=== PATIENT | male | born 1955 | race Caucasian/White ===

== ENCOUNTER 2016-03-29 06:05 | Outpatient (CLI) ==
[2015-11-07 19:59] VITALS: BMI 33.0
[2016-03-29 06:41] LABS: PROTHROMBIN TIME 28.4 SEC (9.3-11.0)
== END 2016-03-29 06:06 | disposition home or self-care (01) ==
LOC: LAB 06:05
PROVIDERS: ATTEND Internal Medicine
DX: I48.91 Unspecified atrial fibrillation (principal); Z51.81 Encounter for therapeutic drug level monitoring
CPT/HCPCS: 36415; 85610

== ENCOUNTER 2016-04-12 06:04 | Outpatient (CLI) ==
[2015-11-07 19:59] VITALS: BMI 33.0
[2016-04-12 06:32] LABS: PROTHROMBIN TIME 28.2 SEC (9.3-11.0)
== END 2016-04-12 06:05 | disposition home or self-care (01) ==
LOC: LAB 06:04
PROVIDERS: ATTEND Internal Medicine
DX: Z51.81 Encounter for therapeutic drug level monitoring (principal); I48.91 Unspecified atrial fibrillation
CPT/HCPCS: 36415; 85610

== ENCOUNTER 2016-04-26 06:11 | Outpatient (CLI) ==
[2015-11-07 19:59] VITALS: BMI 33.0
[2016-04-26 06:33] LABS: HEMATOCRIT 37.8 % (42.0-52.0); HEMOGLOBIN 12.3 g/dl (14.0-18.0); MEAN CORPUSCULAR HEMOGLOBIN 26.3 pg (27.0-31.0); MEAN CORPUSCULAR HGB CONC 32.5 (31.8-35.4); MEAN CORPUSCULAR VOLUME 80.9 fl (80.0-94.0); RED BLOOD COUNT 4.67 10^6/ul (4.70-6.10); WHITE BLOOD COUNT 11.09 K/ul (4.2-10.2)
[2016-04-26 06:45] LABS: PROTHROMBIN TIME 34.8 SEC (9.3-11.0)
[2016-04-26 06:49] LABS: ALBUMIN 3.1 g/dL (3.4-5.0); ALBUMIN/GLOBULIN RATIO 0.66; BILIRUBIN,TOTAL 0.48 mg/dL (0.00-1.20); BUN/CREATININE RATIO 9.58; CALCIUM 9.3 mg/dL (8.2-10.2); CREATININE 1.46 mg/dL (0.60-1.10); TOTAL PROTEIN 7.8 g/dL (5.8-8.1)
[2016-04-26 06:50] LABS: CHOL/HDL RATIO 4.3 (4.5-6.4)
== END 2016-04-26 06:12 | disposition home or self-care (01) ==
LOC: LAB 06:11
PROVIDERS: ATTEND Internal Medicine
DX: Z51.81 Encounter for therapeutic drug level monitoring (principal); D72.829 Elevated white blood cell count, unspecified; I48.91 Unspecified atrial fibrillation; E11.9 Type 2 diabetes mellitus without complications; I10 Essential (primary) hypertension
CPT/HCPCS: 36415; 80053; 80061; 83036; 85027; 85610

== ENCOUNTER 2016-05-03 06:04 | Outpatient (CLI) ==
[2015-11-07 19:59] VITALS: BMI 33.0
[2016-05-03 06:44] LABS: PROTHROMBIN TIME 29.3 SEC (9.3-11.0)
== END 2016-05-03 06:05 | disposition home or self-care (01) ==
LOC: LAB 06:04
PROVIDERS: ATTEND Internal Medicine
DX: Z51.81 Encounter for therapeutic drug level monitoring (principal); I48.91 Unspecified atrial fibrillation
CPT/HCPCS: 36415; 85610

== ENCOUNTER 2016-05-04 02:14 | Emergency (ER) ==
[2016-05-04 02:28] LABS: BASOPHILS # (AUTO) 0.1 K/uL (0-0.2); BASOPHILS % (AUTO) 0.8 % (0.0-3.0); EOSINOPHILS # (AUTO) 1.6 K/ul (0.0-0.7); EOSINOPHILS % (AUTO) 10.3 % (0.0-7.0); HEMOGLOBIN 12.5 g/dl (14.0-18.0); IMMATURE GRANULOCYTE % (AUTO) 0.5 % (0.0-5.0); LYMPHOCYTES # (AUTO) 2.9 K/uL (0.60-3.4); LYMPHOCYTES % (AUTO) 18.2 (10.0-50.0); MEAN CORPUSCULAR HEMOGLOBIN 26.2 pg (27.0-31.0); MEAN CORPUSCULAR HGB CONC 32.9 (31.8-35.4); MEAN CORPUSCULAR VOLUME 79.7 fl (80.0-94.0); MONOCYTES # (AUTO) 1.1 K/uL (0.4-2.0); NEUTROPHILS % (AUTO) 63.2; PLATELET COUNT 266 10^3/uL (140-440); RED BLOOD COUNT 4.77 10^6/ul (4.70-6.10); WHITE BLOOD COUNT 15.86 K/ul (4.2-10.2)
[2016-05-04 02:30] LABS: ABG BASE EXCESS -1 (-2.0-2.0); ABG HCO3 23 (22.0-26.0); ABG PCO2 35.1 mmHg (35-45); ABG PH 7.424 (7.35-7.45)
[2016-05-04] MEDS ORDERED: CARDIZEM INJ 125 MG in SODIUM CHLORIDE 100 ML IV SCH (02:30)
--- NOTE | 2016-05-04 02:30 | ED.PDOC ---
General ED Provider: Dr. RYAN LEMON-ER Chief Complaint: Chest Pain Stated Complaint: my heart flutters--i go to [facility] Time Seen by Physician: 02:27 Mode of Arrival: Walk-In Information Source: Patient, Family Exam Limitations: Physical impairment Primary Care Provider: ALEXEY PULIDO Nursing and Triage Documentation Reviewed and Agree: Yes Cardiovascular Complaint Exam - Chest Pain Complaint/Exam Onset: Gradual Duration: 6hrs Symptoms Are: Still present Timing: Intermittent Initial Severity: Mild Current Severity: Mild Location: Reports: Midsternal Character: Reports: Dull Aggravating: Reports: None Alleviating: Reports: None Associated Signs and Symptoms: Denies: Diaphoresis, Nausea, Vomiting, Fever, Palpitations, Cough, Hemoptysis, Back pain, Abdominal pain, Dizziness, Short of air, Calf pain, Calf swelling Related History: Reports: Similar episode History of Healthcare-Acquired Pneumonia: Reports: No AMI/ACS Risk Factors: Reports: Hypertension TAD Risk Factors: Reports: Hypertension Pulmonary Embolism Risk Factors: Reports: None Prior Care for this Complaint: No Recent Stress Test: No Recent Echo/LV Function: No JVD Present: No Subcutaneous Emphysema Present: No Diminshed Breath Sounds: No Reproducible Chest Wall Pain: No Bilateral Pulses Present: Yes Unequal Pulses Noted: No Differential Diagnoses: Acute [place], ACS, Other Review of Systems - Review Of Systems Constitutional: Reports: No symptoms Eyes: Reports: No symptoms Ears, Nose, Mouth, Throat: Reports: No symptoms Respiratory: Reports: Short of air Cardiac: Reports: Chest pain, Irregular heart rate, Palpitations GI: Reports: No symptoms : Reports: No symptoms Musculoskeletal: Reports: No symptoms Skin: Reports: No symptoms Neurological: Reports: No symptoms Endocrine: Reports: No symptoms Hematologic/Lymphatic: Reports: No symptoms All Other Systems: Reviewed and Negative Past Medical History - Past Medical History Endocrine: Reports: DM 2 Cardiovascular: Reports: Hypertension, A-Fib Respiratory: Reports: None Hematological: Reports: None Gastrointestinal: Reports: None Genitourinary: Reports: None Neuro/Psych: Reports: CVA (x 7 with right hemiparesis ) Musculoskeletal: Reports: None Cancer: Reports: None - Surgical History General Surgical History: Reports: Cholecystectomy, Other (HERNIA) - Family History Family History: Reports: Diabetes - Social History Smoking Status: Current every day smoker, Heavy tobacco smoker Hx Substance Use: Yes (POT) Alcohol Screening: None Lives: With family Physical Exam - Physical Exam Appearance: Well-appearing, No pain distress, Well-nourished Pain Distress: Mild Eyes: HERMINIA, EOMI, Conjunctiva clear ENT: Ears normal, Nose normal, Oropharynx normal Neck: Supple Respiratory: Airway patent, Breath sounds clear, Breath sounds equal, Respirations nonlabored Cardiovascular: Irregular rhythm GI/: Soft, Nontender, No masses, Bowel sounds normal, No Organomegaly Musculoskeletal: Normal strength, ROM intact, No edema, No calf tenderness Skin: Warm, Dry, Normal color Neurological: Sensation intact, Motor intact, Reflexes intact, Cranial nerves intact, Alert, Oriented Psychiatric: Affect appropriate Critical Care Note - Critical Care Note Total Time (mins): 20 Course - Course Orders, Labs, Meds: Orders Category Date Time Status ABG DRAW REQUEST Stat CARDIO 05/04/16 02:20 Ordered EKG-(ED ONLY) Stat CARDIO 05/04/16 02:20 Ordered OXYGEN [ED APPLY O2] .ONCE EMERGENCY 05/04/16 02:23 Active ABG Stat LAB 05/04/16 02:20 Ordered B-TYPE NATRIURETIC PEPTIDE Stat LAB 05/04/16 02:22 Ordered CBC W/ AUTO DIFF Stat LAB 05/04/16 02:20 Ordered COMPREHENSIVE METABOLIC PANEL Stat LAB 05/04/16 02:20 Ordered CREATINE KINASE Stat LAB 05/04/16 02:21 Ordered FREE T4 (FREE THYROXINE) Stat LAB 05/04/16 02:21 Ordered PT WITH INR Stat LAB 05/04/16 02:22 Ordered TROPONIN I Stat LAB 05/04/16 02:21 Ordered TSH [THYROID STIMULATING HORMONE] Stat LAB 05/04/16 02:21 Ordered 0.9 % Sodium Chloride [Sodium Chloride] 100 ml MEDS 05/04/16 02:30 Ordered Diltiazem HCl Inj [Cardizem Inj] 125 mg IV 10 mg/hr CXR [CHEST, 1V AP ONLY] Stat RADS 05/04/16 02:22 Ordered Medications Generic Name Dose Route Start Last Admin Trade Name Freq PRN Reason Stop Dose Admin Diltiazem HCl 125 mg/ Sodium 125 mls @ 10 mls/hr 05/04/16 02:30 Chloride IV .[id number] LAST Protocol 10 MG/HR GLORY Risk Score GLORY Risk Score: Risk Score Odds of by 30D 0 0.1 (0.1-0.2) 1 0.3 (0.2-0.3) 2 0.4 (0.3-0.5) 3 0.7 (0.6-0.9) 4 1.2 (1.0-1.5) 5 2.2 (1.9-2.6) 6 3.0 (2.5-3.6) 7 4.8 (3.8-6.1) Departure - Departure Time of Disposition: : Disposition: TSF SHORT-TRM HOSP Discharge Problem: Chest pain, Atrial fibrillation with rapid ventricular response Instructions: Atrial Fibrillation (ED) Condition: Good Pt referred to PMD for follow-up: No Allergies/Adverse Reactions: Allergies [id number]-Pls Reductase Inhibitor Allergy (Severe, Verified 05/04/16 02:16) made me sick dye Allergy (Severe, Uncoded 05/04/16 02:16) rash Pt to buy medical alert necklace Home Medications: Ambulatory Orders Amlodipine Besylate [Norvasc] 10 mg PO DAILY 04/10/13 Aspirin/Calcium Carbonate/Mag [Aspirin Buffered 325 Mg Tab] 325 mg PO DAILY Cholecalciferol (Vitamin D3) [Vitamin D] 1,000 unit PO BID 05/20/15 Furosemide [Lasix] 20 mg PO d 05/20/15 Gabapentin 300 mg PO BID 05/20/15 Hydrocodone/Acetaminophen [[place] 7.5-325 Tablet] 1 each PO QID 05/20/15 Insulin Glargine,Hum.rec.anlog [Lantus] 50 unit SQ BEDTIME vial 05/20/15 Lisinopril 20 mg PO BID 05/20/15 Pravastatin Sodium 40 mg PO DAILY 05/20/15 Sitagliptin Phosphate [Januvia] 100 mg PO d 05/20/15 Warfarin Sodium [Coumadin] 4 mg PO d 05/20/15 Polyethylene Glycol 1450 [Pcca Polyglycol [place]] 1 gm QA #60 powder Transfer Form Completed: Yes Disposition Discussed With: Patient, Family
[2016-05-04 02:31] LABS: ABG TCO2 24 (22.0-28.0)
[2016-05-04 02:40] VITALS: BP 102/94
[2016-05-04 02:41] VITALS: TEMP 99.9; BMI 33.7
[2016-05-04] MEDS ORDERED: CARDIZEM INJ IVP STA (02:49)
[2016-05-04 02:54] LABS: PROTHROMBIN TIME 27.6 SEC (9.3-11.0)
[2016-05-04 03:12] LABS: ALANINE AMINOTRANSFERASE 15 U/L (12-78); ALBUMIN 3.3 g/dL (3.4-5.0); ALBUMIN/GLOBULIN RATIO 0.69; ALKALINE PHOSPHATASE 78 U/L (56-119); ANION GAP 15.5; ASPARTATE AMINO TRANSFERASE 22 U/L (15-37); BILIRUBIN,TOTAL 0.67 mg/dL (0.00-1.20); BLOOD UREA NITROGEN 12 mg/dL (7-18); BUN/CREATININE RATIO 8.51; CALCIUM 9.6 mg/dL (8.2-10.2); CARBON DIOXIDE 24 mmol/L (23-31); CHLORIDE 103 mmol/L (98-107); CREATINE KINASE 127 U/L; CREATININE 1.41 mg/dL (0.60-1.10); GLUCOSE 117 mg/dL (82-115); POTASSIUM 3.5 mmol/L (3.5-5.1); SODIUM 139 mmol/L (136-145); TOTAL PROTEIN 8.1 g/dL (5.8-8.1)
[2016-05-04 03:13] LABS: CREATINE KINASE MB 4.3 ng/ml (0.0-3.6)
[2016-05-04] MEDS ORDERED: CARDIZEM INJ ONE (03:13)
--- NOTE | 2016-05-04 07:21 | DI ---
EXAM: Chest one view HISTORY: Chest pain COMPARISON: 07/05/2012 TECHNIQUE: Single view of the chest was performed FINDINGS: There is bilateral interstitial and alveolar opacity. There is granulomatous calcificati on. There is no pleural effusion or pneumothorax. The heart is borderline enlarged and unchanged i n size. The mediastinal contour is normal. There are no acute abnormalities of the bones. IMPRESSION: Bilateral interstitial and alveolar opacity may represent edema and/or pneumonia. Report faxed at time of dictation.
== END 2016-05-04 03:15 | disposition short-term general hospital (02) ==
LOC: ED 02:14
DX: I48.0 Paroxysmal atrial fibrillation (principal); R07.9 Chest pain, unspecified; I10 Essential (primary) hypertension; E11.9 Type 2 diabetes mellitus without complications; Z86.73 Personal history of transient ischemic attack (TIA), and cerebral infarction without residual deficits; F17.210 Nicotine dependence, cigarettes, uncomplicated; Z79.01 Long term (current) use of anticoagulants; Z79.899 Other long term (current) drug therapy
CPT/HCPCS: 36415; 80053; 82550; 82553; 82803; 83880; 84439; 84443; 84484; 85025; 85610; 93005; 93010; 96365; 96376; 99285

== ENCOUNTER 2016-05-04 03:18 | Outpatient (CLI) ==
[2016-05-04 02:41] VITALS: BMI 33.7
== END 2016-05-04 03:19 | disposition home or self-care (01) ==
LOC: AMBL 03:18
PROVIDERS: ATTEND Family Medicine
DX: R06.02 Shortness of breath (principal); R00.0 Tachycardia, unspecified; R06.2 Wheezing; I10 Essential (primary) hypertension; E11.9 Type 2 diabetes mellitus without complications; I48.91 Unspecified atrial fibrillation; Z86.73 Personal history of transient ischemic attack (TIA), and cerebral infarction without residual deficits

== ENCOUNTER 2016-05-10 19:29 | Outpatient (CLI) ==
[2016-05-10 19:49] VITALS: BMI 43.0
== END 2016-05-10 19:30 ==
LOC: AMBL 19:29
PROVIDERS: ATTEND Family Medicine
DX: R09.2 Respiratory arrest (principal)

== ENCOUNTER 2016-05-10 19:37 | Emergency (ER) ==
[2016-05-10] MEDS ORDERED: VERSED ONE (19:46)
[2016-05-10] MEDS ORDERED: AMIDATE IVP ONE (19:46)
[2016-05-10] MEDS ORDERED: NORCURON ONE (19:46)
[2016-05-10] MEDS ORDERED: ANECTINE ONE (19:46)
[2016-05-10 19:49] VITALS: BP 197/77; TEMP 97; BMI 43.0
[2016-05-10 19:51] LABS: BASOPHILS # (AUTO) 0.1 K/uL (0-0.2); BASOPHILS % (AUTO) 0.8 % (0.0-3.0); HEMATOCRIT 33.7 % (42.0-52.0); HEMOGLOBIN 10.7 g/dl (14.0-18.0); IMMATURE GRANULOCYTE % (AUTO) 0.9 % (0.0-5.0); LYMPHOCYTES # (AUTO) 3.2 K/uL (0.60-3.4); LYMPHOCYTES % (AUTO) 22.6 (10.0-50.0); MEAN CORPUSCULAR HEMOGLOBIN 26.2 pg (27.0-31.0); MEAN CORPUSCULAR HGB CONC 31.8 (31.8-35.4); MEAN CORPUSCULAR VOLUME 82.4 fl (80.0-94.0); MONOCYTES # (AUTO) 1.3 K/uL (0.4-2.0); MONOCYTES % (AUTO) 9.1 (0-10); NEUTROPHILS # (AUTO) 8.3 K/ul (2.0-6.9); NEUTROPHILS % (AUTO) 59.6; PLATELET COUNT 314 10^3/uL (140-440); RED BLOOD COUNT 4.09 10^6/ul (4.70-6.10)
[2016-05-10] MEDS ORDERED: LASIX IVP STA (19:51)
[2016-05-10 19:59] LABS: ABG PH 7.191 (7.35-7.45)
--- NOTE | 2016-05-10 19:59 | ED.PDOC ---
General ED Provider: Dr. RYAN LEMON-ER Chief Complaint: Shortness of Air Stated Complaint: left harjinder roberts today=---presented to [facility] in pulmonary edema , cyanotic--resp distress Time Seen by Physician: 19:40 Mode of Arrival: Ambulance Information Source: Patient, Family, EMT Exam Limitations: No limitations Primary Care Provider: ALEXEY PULIDO Nursing and Triage Documentation Reviewed and Agree: Yes Respiratory Complaint Exam - Shortness of Air Complaint/Exam Onset/Duration: unknown Symptoms Are: Still present Timing: Constant Initial Severity: Moderate Current Severity: Severe Character: Reports: Dyspnea at rest Aggravating: Reports: None Alleviating: Reports: None Associated Signs and Symptoms: Reports: Wheezing, Edema, Rapid breathing, Labored breathing. Denies: Cough, Chest pain with cough, Chest pain, Fever, Chills, Diaphoresis, Nasal congestion, Dizziness, Calf pain, Calf swelling, Decreased intake Related History: Reports: Similar episode History of Healthcare-Acquired Pneumonia: No Cardiac Risk Factors: Reports: Prior [place], CAD, Elevated lipids, Diabetes, Hypertension, CHF Pseudomonas Risk Factors: Reports: Chronic Lung Disease Tuberculosis Risk Factors: Reports: Chronic Resp. Faliure Home Oxygen Use: No Recent Stress Test: No Recent Echo/LV Function: Yes Respiratory Distress: Moderate Stridor Present: No Tracheal Deviation: No Subcutaneous Emphysema: No Accessory Muscle Use: Yes Retractions: Intercostal Diminished Breath Sounds: Yes Prolonged Expiratory Phase: No Unable to Speak Full Sentences: Yes Fatigue: Yes Leg Swelling: No Jamal's Sign Present: No Grunting Respirations: No Kussmaul Respirations: No Differential Diagnoses: CHF, Pulmonary Edema, COPD Exacerbation, [place] Quality Indicator For Non-Traumatic Chest Pain/Syncope: EKG Performed Review of Systems - Review Of Systems Constitutional: Reports: No symptoms Eyes: Reports: No symptoms Ears, Nose, Mouth, Throat: Reports: No symptoms Respiratory: Reports: Cough, Short of air Cardiac: Reports: Chest pain, Edema GI: Reports: No symptoms : Reports: No symptoms Musculoskeletal: Reports: No symptoms Skin: Reports: No symptoms Neurological: Reports: No symptoms Endocrine: Reports: No symptoms Hematologic/Lymphatic: Reports: No symptoms All Other Systems: Reviewed and Negative Past Medical History - Past Medical History Endocrine: Reports: DM 2 Cardiovascular: Reports: Hypertension, A-Fib Respiratory: Reports: None Hematological: Reports: None Gastrointestinal: Reports: None Genitourinary: Reports: None, CKD Neuro/Psych: Reports: CVA (x 7 with right hemiparesis ) Musculoskeletal: Reports: None Cancer: Reports: None - Surgical History General Surgical History: Reports: Cholecystectomy, Other (HERNIA) - Family History Family History: Reports: Diabetes - Social History Smoking Status: Current every day smoker, Heavy tobacco smoker Hx Substance Use: Yes (POT) Alcohol Screening: None Physical Exam - Physical Exam Appearance: Well-appearing, No pain distress, Well-nourished Eyes: HERMINIA, EOMI, Conjunctiva clear ENT: Ears normal, Nose normal, Oropharynx normal Neck: Supple Respiratory: Airway patent, Breath sounds equal, Breath sounds diminished, Crackles, Wheezes Cardiovascular: Tachycardia GI/: Soft, Nontender, No masses, Bowel sounds normal, No Organomegaly Musculoskeletal: Normal strength, ROM intact, No edema, No calf tenderness Skin: Warm, Dry, Normal color Neurological: Sensation intact, Motor intact, Reflexes intact, Cranial nerves intact, Alert, Oriented Psychiatric: Affect appropriate, Mood appropriate, Anxious Interpretation - Radiology Interpretation Radiology Interpretation By: ED Physician Radiology Results: Positive Exam Interpreted: Portable CXR - EKG Interpretation Time of EKG #1: 20:00 Rate: Normal Rhythm: Sinus Ectopy: None [place]: NL ST Segment: Normal Critical Care Note - Critical Care Note Total Time (mins): 30 Course - Course Hematology/Chemistry: 05/10/16 19:40 Orders, Labs, Meds: Lab Review 05/10/16 19:40 WBC 14.00 H RBC 4.09 L Hgb 10.7 L Hct 33.7 L MCV 82.4 MCH 26.2 L MCHC 31.8 RDW Coeff of Mariano 13.7 Plt Count 314 Immature Gran % (Auto) 0.9 Neut % (Auto) 59.6 Lymph % (Auto) 22.6 [place] % (Auto) 9.1 Eos % (Auto) 7.0 Baso % (Auto) 0.8 Immature Gran # (Auto) 0.1 Neut # 8.3 H Lymph # 3.2 [place] # 1.3 Eos # 1.0 H Baso # 0.1 Orders Category Date Time Status ABG DRAW REQUEST Stat CARDIO 05/10/16 19:41 Ordered EKG-(ED ONLY) Stat CARDIO 05/10/16 19:41 Ordered ED SUPERVISOR STAGE CARPENTRY APPLIED .ONCE EMERGENCY 05/10/16 19:42 Active IV [ED IV/MEDIPORT/POWERPORT] .ONCE EMERGENCY 05/10/16 19:42 Active ABG Stat LAB 05/10/16 19:41 Ordered BNP [B-TYPE NATRIURETIC PEPTIDE] Stat LAB 05/10/16 19:40 Received CBC W/ AUTO DIFF Stat LAB 05/10/16 19:40 Completed COMPREHENSIVE METABOLIC PANEL Stat LAB 05/10/16 19:40 Received CREATINE KINASE Stat LAB 05/10/16 19:40 Received D-DIMER Stat LAB 05/10/16 19:40 Received PT WITH INR Stat LAB 05/10/16 19:40 Received TROPONIN I Stat LAB 05/10/16 19:40 Received 0.9 % Sodium Chloride [Saline Flush] MEDS 05/10/16 19:42 Ordered 1 syr IVF PRN PRN Etomidate [Amidate] MEDS 05/10/16 19:46 Discontinued 20 mg IVP .STK-MED ONE Furosemide [Lasix] MEDS 05/10/16 19:51 Discontinued 40 mg IVP ONCE STA Midazolam HCl Inj [Versed] MEDS 05/10/16 19:46 Discontinued 5 mg .ROUTE .STK-MED ONE Succinylcholine Chloride [Anectine] MEDS 05/10/16 19:46 Discontinued 20 mg .ROUTE .STK-MED ONE Vecuronium [place] [Norcuron] MEDS 05/10/16 19:46 Discontinued 10 mg .ROUTE .STK-MED ONE CXR [CHEST, 1V AP ONLY] Stat RADS 05/10/16 19:43 Ordered Medications Generic Name Dose Route Start Last Admin Trade Name Freq PRN Reason Stop Dose Admin Sodium Chloride 1 syr 05/10/16 19:42 Saline Flush IVF PRN PRN To flush IV Discontinued Medications Generic Name Dose Route Start Last Admin Trade Name Freq PRN Reason Stop Dose Admin Furosemide 40 mg 05/10/16 19:51 Lasix IVP 05/10/16 19:52 ONCE STA Vital Signs: Temp Pulse Resp BP Pulse Ox 05/10/16 19:37 97.0 F L 89 40 H 197/77 H 74 L Departure - Departure Time of Disposition: 20:00 Disposition: TSF SHORT-TRM HOSP Discharge Problem: Pulmonary edema Qualifiers: Chronicity: acute Qualifier Code: (J81.0) Acute pulmonary edema Acute respiratory failure Qualifiers: Respiratory failure complication: hypoxia Qualifier Code: (J96.01) Acute respiratory failure with hypoxia Instructions: Heart Failure (ED) Condition: Poor Pt referred to PMD for follow-up: No Allergies/Adverse Reactions: Allergies [place]-Xqp-Frk Reductase Inhibitor Allergy (Severe, Verified 05/04/16 02:16) made me sick dye Allergy (Severe, Uncoded 05/04/16 02:16) rash Pt to buy medical alert necklace Home Medications: Ambulatory Orders Amlodipine Besylate [Norvasc] 10 mg PO DAILY 04/10/13 Aspirin/Calcium Carbonate/Mag [Aspirin Buffered 325 Mg Tab] 325 mg PO DAILY Cholecalciferol (Vitamin D3) [Vitamin D] 1,000 unit PO BID 05/20/15 Furosemide [Lasix] 20 mg PO d 05/20/15 Gabapentin 300 mg PO BID 05/20/15 Hydrocodone/Acetaminophen [[place] 7.5-325 Tablet] 1 each PO QID 05/20/15 Insulin Glargine,Hum.rec.anlog [Lantus] 50 unit SQ BEDTIME vial 05/20/15 Lisinopril 20 mg PO BID 05/20/15 Pravastatin Sodium 40 mg PO DAILY 05/20/15 Sitagliptin Phosphate [Januvia] 100 mg PO d 05/20/15 Warfarin Sodium [Coumadin] 4 mg PO d 05/20/15 Polyethylene Glycol 1450 [Pcca Polyglycol [place]] 1 gm QAM #60 powder Transfer Form Completed: Yes Disposition Discussed With: Patient, Family
[2016-05-10 20:00] LABS: ABG BASE EXCESS 0 (-2.0-2.0); ABG HCO3 28.2 (22.0-26.0); ABG PCO2 73.7 mmHg (35-45); ABG TCO2 30 (22.0-28.0)
[2016-05-10] MEDS ORDERED: LASIX ONE (20:00)
[2016-05-10] MEDS ORDERED: SUBLIMAZE ONE (20:01)
[2016-05-10] MEDS ORDERED: VERSED IVP STA (20:14)
[2016-05-10] MEDS ORDERED: DIPRIVAN 20 ML VIAL IVP STA ×2 (20:14→20:29)
[2016-05-10] MEDS ORDERED: ANECTINE IVP STA (20:14)
[2016-05-10 20:16] LABS: ALBUMIN 3.2 g/dL (3.4-5.0); ALBUMIN/GLOBULIN RATIO 0.65; ANION GAP 13.3; BILIRUBIN,TOTAL 0.49 mg/dL (0.00-1.20); BUN/CREATININE RATIO 18.96; CALCIUM 8.7 mg/dL (8.2-10.2); CREATININE 1.74 mg/dL (0.60-1.10); POTASSIUM 4.3 mmol/L (3.5-5.1); TOTAL PROTEIN 8.1 g/dL (5.8-8.1); TROPONIN I 0.011 ng/ml (0.0000-0.4000)
[2016-05-10 20:26] LABS: PROTHROMBIN TIME 36.9 SEC (9.3-11.0)
[2016-05-10] MEDS ORDERED: NORCURON IVP STA (20:28)
[2016-05-10] MEDS ORDERED: SUBLIMAZE IVP STA (20:28)
[2016-05-10] MEDS ORDERED: ZOSYN 3.375 GM 3.375 GM in SODIUM CHLORIDE 100 ML IV STA (20:31)
--- NOTE | 2016-05-10 20:37 | ED.PDOC ---
Procedures - Intubation Time of Intubation: 20:10 Medications: Yes: Norcuron, Succinylcholine, Versed, Propofol Type of Tube Used: Endotracheal Tube Size: 7.5 Cricoid Pressure Used: No Tube Queen Used: Yes Position of Tube at Lip: 22 Number of Attempts: 1 Suction Used: Yes Glidescope Used: No CO2 Detector Used: Yes Lung Sounds Equal Bilaterally: Yes Intubation Complications: Present: No complications Tube Inserted By: Lucas Will CRNA Tube Placement Verified by X-ray: No Conscious Sedation - Pre-op Assessment Weight: 300 lb Surgical History: HERNIA, CHOLECYSTECTOMY. STINTS IN HEART AND LEGS - Medical History Past Medical History: Hypertension, Diabetes, CVA, Other Other History: PANCREATITIS NEUROPATHY - Physical Exam Heart Rate/Rhythm: Regular Rhythm, Regular Rate, Irregular Rhythm
--- NOTE | 2016-05-11 03:53 | DI ---
EXAM: AP single view of the chest. HISTORY: Dyspnea. FINDINGS: The bony structures are unremarkable. The cardiac silhouette is within normal limits in size. The costophrenic angles are clear. There are bilateral infiltrates. There is minimal right basilar consolidation. There are calcified granulomas. Impression: Bilateral infiltrates consistent with infection versus edema. Minimal right basilar atelectasis and/or pneumonia.
== END 2016-05-10 20:47 | disposition short-term general hospital (02) ==
LOC: ED 19:37
DX: J81.0 Acute pulmonary edema (principal); J96.01 Acute respiratory failure with hypoxia; I10 Essential (primary) hypertension; I50.9 Heart failure, unspecified; I25.2 Old myocardial infarction; E11.9 Type 2 diabetes mellitus without complications; E78.5 Hyperlipidemia, unspecified; I48.91 Unspecified atrial fibrillation; N18.9 Chronic kidney disease, unspecified; F17.210 Nicotine dependence, cigarettes, uncomplicated; Z79.01 Long term (current) use of anticoagulants; Z79.899 Other long term (current) drug therapy; Z86.73 Personal history of transient ischemic attack (TIA), and cerebral infarction without residual deficits
CPT/HCPCS: 31500; 36415; 80053; 82550; 82803; 83880; 84484; 85025; 85379; 85610; 93005; 93010; 96374; 96375; 99291

== ENCOUNTER 2016-07-01 06:35 | Outpatient (CLI) ==
[2016-07-01 07:01] VITALS: BMI 35.9
== END 2016-07-01 06:36 ==
LOC: AMBL 06:35
PROVIDERS: ATTEND Family Medicine
DX: F41.9 Anxiety disorder, unspecified (principal); G47.00 Insomnia, unspecified; I69.351 Hemiplegia and hemiparesis following cerebral infarction affecting right dominant side; Z96.0 Presence of urogenital implants

== ENCOUNTER 2016-07-01 06:51 | Emergency (ER) ==
[2016-07-01 07:01] VITALS: BP 120/58; TEMP 98.6; BMI 35.9
[2016-07-01] MEDS ORDERED: SODIUM CHLORIDE 1,000 ML IV STA (07:22)
[2016-07-01] MEDS ORDERED: ATIVAN PO STA (07:52)
[2016-07-01 07:57] LABS: BASOPHILS # (AUTO) 0.1 K/uL (0-0.2); BASOPHILS % (AUTO) 0.7 % (0.0-3.0); EOSINOPHILS # (AUTO) 0.7 K/ul (0.0-0.7); EOSINOPHILS % (AUTO) 5.3 % (0.0-7.0); HEMATOCRIT 27.6 % (42.0-52.0); HEMOGLOBIN 8.8 g/dl (14.0-18.0); IMMATURE GRANULOCYTE % (AUTO) 0.4 % (0.0-5.0); LYMPHOCYTES # (AUTO) 3.4 K/uL (0.60-3.4); LYMPHOCYTES % (AUTO) 27.7 (10.0-50.0); MEAN CORPUSCULAR HEMOGLOBIN 26.3 pg (27.0-31.0); MEAN CORPUSCULAR HGB CONC 31.9 (31.8-35.4); MEAN CORPUSCULAR VOLUME 82.4 fl (80.0-94.0); MONOCYTES # (AUTO) 1.3 K/uL (0.4-2.0); MONOCYTES % (AUTO) 10.4 (0-10); NEUTROPHILS # (AUTO) 6.8 K/ul (2.0-6.9); NEUTROPHILS % (AUTO) 55.5; PLATELET COUNT 302 10^3/uL (140-440); RED BLOOD COUNT 3.35 10^6/ul (4.70-6.10); WHITE BLOOD COUNT 12.19 K/ul (4.2-10.2)
[2016-07-01 08:00] LABS: ABG BASE EXCESS 0 (-2.0-2.0); ABG HCO3 24.4 (22.0-26.0); ABG PCO2 35.4 mmHg (35-45); ABG PH 7.448 (7.35-7.45); ABG TCO2 26 (22.0-28.0)
[2016-07-01 08:37] LABS: BILIRUBIN,URINE Negative (NEGATIVE); KETONES,URINE Negative (NEGATIVE); LEUKOCYTE ESTERASE ,URINE Negative (NEGATIVE); NITRITE,URINE Positive (NEGATIVE); PH,URINE 5.5 (5-9); PROTEIN,URINE 2+ (NEGATIVE); URINE, BLOOD Negative (NEGATIVE)
[2016-07-01 08:38] LABS: ADD URINE MICROSCOPIC YES
[2016-07-01 08:39] LABS: ALBUMIN 2.7 g/dL (3.4-5.0); ALBUMIN/GLOBULIN RATIO 0.54; ANION GAP 14.9; CALCIUM 9.2 mg/dL (8.2-10.2); CARBON DIOXIDE 24 mmol/L (23-31); CHLORIDE 101 mmol/L (98-107); GLUCOSE 190 mg/dL (82-115); POTASSIUM 4.9 mmol/L (3.5-5.1); SODIUM 135 mmol/L (136-145); TOTAL PROTEIN 7.7 g/dL (5.8-8.1)
[2016-07-01 08:40] LABS: ALANINE AMINOTRANSFERASE 39 U/L (12-78); ALKALINE PHOSPHATASE 111 U/L (56-119); ASPARTATE AMINO TRANSFERASE 22 U/L (15-37); BILIRUBIN,TOTAL 0.63 mg/dL (0.00-1.20); BLOOD UREA NITROGEN 31 mg/dL (7-18); BUN/CREATININE RATIO 14.02; CREATINE KINASE 39 U/L; CREATININE 2.21 mg/dL (0.60-1.10)
[2016-07-01 08:45] LABS: BACTERIA,URINE 3+ (NOT PRESENT)
--- NOTE | 2016-07-01 08:52 | CT ---
EXAM: CT chest without contrast. HISTORY: Chest pain. Cough. COMPARISON: Radiograph 05/10/2016. CT 11/16/2015. TECHNIQUE: Multiple axial images of the chest were obtained without intravenous contrast. Images were reformatted in the sagittal and coronal planes. FINDINGS: Calcified mediastinal and hilar lymph nodes present. Heart is mildly enlarged. There is no large pericardial effusion. Atherosclerotic calcifications are present. There are bilateral pleural effusions, slightly larger on the left with dependent consolidation in b oth lungs. Bilateral ground-glass opacities. Interlobular septal thickening seen elsewhere. Linea r areas of subsegmental atelectasis seen throughout both lungs. No pneumothorax identified. Calcif ied granulomatous changes are present. Limited images of the upper abdomen demonstrate no acute finding. Degenerative changes are seen in the spine. IMPRESSION: Pulmonary edema.
[2016-07-01] MEDS ORDERED: DUONEB NEB STA (09:06)
[2016-07-01] MEDS ORDERED: SOLU-MEDROL 125 MG IVP STA (09:07)
[2016-07-01] MEDS ORDERED: LASIX IVP STA (09:28)
--- NOTE | 2016-07-01 09:43 | CT ---
EXAM: CT BRAIN HISTORY: Confusion TECHNIQUE: CT brain without intravenous contrast. 5-mm axial sections with Reformations. COMPARISON: 04/30/2015 FINDINGS: There is significant generalized atrophy. Redemonstration of a large old left middle cerebral arter y distribution infarction. There is moderate chronic microvascular ischemic change suggested. Low a ttenuation within the central lower brain stem likely represents extension of chronic microvascular ischemic change. Stable mild ventriculomegaly in part likely compensatory to the degree of atrophy. There is no evidence of recent large vessel distribution ischemic infarction, mass or mass effect. There is no intraparenchymal or subdural hemorrhage. Visualized paranasal sinuses are clear. Bila teral mastoid process effusions, greater in volume on the left are new. No skull fracture identifie d. IMPRESSION: 1. Significant involutional changes, unusual for age. No definite acute intracranial process. 2. Newly developed mastoid process effusions.
[2016-07-01 09:53] LABS: ABG BASE EXCESS 1 (-2.0-2.0); ABG PCO2 36.2 mmHg (35-45); ABG PH 7.446 (7.35-7.45); ABG TCO2 26 (22.0-28.0)
--- NOTE | 2016-07-01 10:30 | ED.PDOC ---
General ED Provider: Dr. MARIFER HOPE Chief Complaint: Non-specific Complaint Stated Complaint: altered mental status Time Seen by Physician: 07:00 Mode of Arrival: Ambulance Information Source: Patient, EMT Exam Limitations: No limitations Primary Care Provider: ALEXEY PULIDO Nursing and Triage Documentation Reviewed and Agree: Yes Neurological Complaint Exam - Altered Mental Status Complaint/Exam Current Mental Status: Confusion (family stated he is confused according to them ) Last Known Well: unknown Symptoms Are: Resolved Timing: Intermittent Initial Severity: Moderate Current Severity: None Eye Deviation Present: No Character: Reports: Confusion Aggravating: Reports: None Alleviating: Reports: Unknown Associated Signs and Symptoms: Reports: Weakness (confusion ) Related History: Reports: Similar episode Cardiac Risk Factors: Reports: Hypertension, Diabetes, CAD CVA Risk Factors: Reports: Hypertension Related Surgical History: Reports: None Carotid Bruit Present: No Nystagmus Present: No Gag Reflex Present: Yes Meningeal Signs Positive: No Focal Weakness: Present: None Focal Sensory Loss: Present: None [id number]: Normal Findings Babinski Sign: Negative Right, Negative Left Signs of Injury: Present: Normal findings Thrombolytics Considered: No Differential Diagnoses: Metabolic Disorder, Hypoglycemia, Medication reaction, Sepsis Review of Systems - Review Of Systems Constitutional: Reports: Malaise Eyes: Reports: No symptoms Ears, Nose, Mouth, Throat: Reports: No symptoms Respiratory: Reports: Cough, Short of air Cardiac: Reports: No symptoms GI: Reports: No symptoms : Reports: No symptoms Musculoskeletal: Reports: No symptoms Skin: Reports: No symptoms Neurological: Reports: No symptoms Endocrine: Reports: No symptoms Hematologic/Lymphatic: Reports: No symptoms All Other Systems: Reviewed and Negative Past Medical History - Past Medical History Endocrine: Reports: DM 2 Cardiovascular: Reports: Hypertension, A-Fib Respiratory: Reports: None Hematological: Reports: None Gastrointestinal: Reports: None Genitourinary: Reports: None, CKD Neuro/Psych: Reports: CVA (x 7 with right hemiparesis ) Musculoskeletal: Reports: None Cancer: Reports: None - Surgical History General Surgical History: Reports: Cholecystectomy, Other (HERNIA) - Family History Family History: Reports: Diabetes - Social History Smoking Status: Current every day smoker, Heavy tobacco smoker Hx Substance Use: Yes (Marijuana) Alcohol Screening: None - Immunizations Tetanus Shot up to Date: Yes Physical Exam - Physical Exam Appearance: Ill-appearing Ill-appearing: Moderate Pain Distress: Mild Eyes: HERMINIA, EOMI, Conjunctiva clear ENT: Ears normal, Nose normal, Oropharynx normal Respiratory: Crackles Cardiovascular: RRR, Pulses normal, No rub, No murmur GI/: Soft, Nontender, No masses, Bowel sounds normal, No Organomegaly Musculoskeletal: Normal strength, ROM intact, No edema, No calf tenderness Skin: Warm, Dry, Normal color Neurological: Sensation intact, Motor intact, Alert Psychiatric: Affect appropriate, Mood appropriate Critical Care Note - Critical Care Note Total Time (mins): 0 Course - Course Hematology/Chemistry: 07/01/16 07:17 07/01/16 07:50 Orders, Labs, Meds: Lab Review 07/01/16 07/01/16 07/01/16 07:17 07:22 07:50 WBC 12.19 H RBC 3.35 L Hgb 8.8 L Hct 27.6 L MCV 82.4 MCH 26.3 L MCHC 31.9 RDW Coeff of Mariano 16.3 H Plt Count 302 Immature Gran % (Auto) 0.4 Neut % (Auto) 55.5 Lymph % (Auto) 27.7 Mobile % (Auto) 10.4 H Eos % (Auto) 5.3 Baso % (Auto) 0.7 Immature Gran # (Auto) 0.1 Neut # 6.8 Lymph # 3.4 Mobile # 1.3 Eos # 0.7 Baso # 0.1 D-Dimer (Manual) 4220.68 Puncture Site Lbrach O2 Saturation 94.0 L ABG pH 7.448 ABG pCO2 35.4 ABG pO2 69.0 L ABG HCO3 24.4 ABG Total CO2 26 ABG Base Excess 0 Shiv Test O2 Delivery Device Oxygen Liter Flow FiO2 % 21.0 Sodium 135 L Potassium 4.9 Chloride 101 Carbon Dioxide 24 Anion Gap 14.9 BUN 31 H Creatinine 2.21 H Estimated GFR (MDRD) 30.00 BUN/Creatinine Ratio 14.02 Glucose 190 H Lactic Acid 9.0 Calcium 9.2 Total Bilirubin 0.63 AST 22 ALT 39 Alkaline Phosphatase 111 Total Creatine Kinase 39 Troponin I < 0.0100 Total Protein 7.7 Albumin 2.7 L Globulin 5.0 Albumin/Globulin Ratio 0.54 TSH 1.512 Free T4 1.05 Urine Color Urine Clarity Urine pH Ur Specific [place] Urine Protein Urine Glucose (UA) Urine Ketones Urine Blood Urine Nitrite Urine Bilirubin Urine Urobilinogen Ur Leukocyte Esterase Urine Microscopic RBC Urine Microscopic WBC Ur Squamous Epith Cells Urine Bacteria Urine Yeast 07/01/16 07/01/16 08:25 09:45 WBC RBC Hgb Hct MCV MCH MCHC RDW Coeff of Mariano Plt Count Immature Gran % (Auto) Neut % (Auto) Lymph % (Auto) [place] % (Auto) Eos % (Auto) Baso % (Auto) Immature Gran # (Auto) Neut # Lymph # Mobile # Eos # Baso # D-Dimer (Manual) Puncture Site L brach O2 Saturation 97.0 ABG pH 7.446 ABG pCO2 36.2 ABG pO2 82.0 L ABG HCO3 25.0 ABG Total CO2 26 ABG Base Excess 1 Shiv Test + O2 Delivery Device Nc Oxygen Liter Flow 2.00 FiO2 % Sodium Potassium Chloride Carbon Dioxide Anion Gap BUN Creatinine Estimated GFR (MDRD) BUN/Creatinine Ratio Glucose Lactic Acid Calcium Total Bilirubin AST ALT Alkaline Phosphatase Total Creatine Kinase Troponin I Total Protein Albumin Globulin Albumin/Globulin Ratio TSH Free T4 Urine Color Yellow Urine Clarity Slightly Urine pH 5.5 Ur Specific [place] 1.015 Urine Protein 2+ Urine Glucose (UA) Negative Urine Ketones Negative Urine Blood Negative Urine Nitrite Positive Urine Bilirubin Negative Urine Urobilinogen 0.2 Ur Leukocyte Esterase Negative Urine Microscopic RBC 0-2 Urine Microscopic WBC 0-2 Ur Squamous Epith Cells 0-2 Urine Bacteria 3+ Urine Yeast 1+ Orders Category Date Time Status ABG DRAW REQUEST DAILY@0600 CARDIO 07/03/16 06:00 Ordered ABG DRAW REQUEST DAILY@0600 CARDIO 07/04/16 06:00 Ordered ABG DRAW REQUEST DAILY@0600 CARDIO 07/05/16 06:00 Ordered ABG DRAW REQUEST Routine CARDIO 07/01/16 09:40 Completed ABG DRAW REQUEST Stat CARDIO 07/01/16 07:22 Completed EKG-(ED ONLY) Stat CARDIO 07/01/16 07:18 Completed NEBULIZER TREATMENT Stat CARDIO 07/01/16 09:06 Completed ED IV/MEDIPORT/POWERPORT .ONCE EMERGENCY 07/01/16 07:18 Active ABG Stat LAB 07/01/16 07:22 Completed ARTERIAL BLOOD GAS [ABG] Stat LAB 07/01/16 09:45 Completed BLOOD CULTURE Stat LAB 07/01/16 07:50 Received CBC W/ AUTO DIFF Stat LAB 07/01/16 07:17 Completed COMPREHENSIVE METABOLIC PANEL Stat LAB 07/01/16 07:50 Completed CREATINE KINASE Stat LAB 07/01/16 07:50 Completed D-DIMER Stat LAB 07/01/16 07:50 Completed FREE T4 (FREE THYROXINE) Stat LAB 07/01/16 07:50 Completed LACTIC ACID Stat LAB 07/01/16 07:50 Completed THYROID STIMULATING HORMONE Stat LAB 07/01/16 07:50 Completed TROPONIN I Stat LAB 07/01/16 07:50 Completed URINALYSIS C & S IF INDICATED Stat LAB 07/01/16 08:25 Completed URINE CULTURE Routine LAB 07/01/16 08:25 Received 0.9 % Sodium Chloride [Saline Flush] MEDS 07/01/16 07:19 Active 1 syr IVF PRN PRN Furosemide [Lasix] MEDS 07/01/16 09:28 Discontinued 40 mg IVP ONCE STA Ipratropium/Albuterol Neb [Duoneb] MEDS 07/01/16 09:06 Discontinued 1 vial NEB ONCE STA Lorazepam [Ativan] MEDS 07/01/16 07:52 Discontinued 1 mg PO ONCE STA Methylprednisolone Sod Succ/Pf [Solu-Medrol 125 mg] MEDS 07/01/16 09:07 Discontinued 125 mg IVP ONCE STA Sodium Chloride 0.9% [Sodium Chloride] 1,000 ml MEDS 07/01/16 07:[address] CHEST W/O CONTRAST Stat RADS 07/01/16 07:[address] HEAD W/O CONTRAST Stat RADS 07/01/16 09:04 Completed Medications Generic Name Dose Route Start Last Admin Trade Name Freq PRN Reason Stop Dose Admin Sodium Chloride 1 syr 07/01/16 07:19 07/01/16 09:35 Saline Flush IVF 1 syr PRN PRN Administration To flush IV Discontinued Medications Generic Name Dose Route Start Last Admin Trade Name Freq PRN Reason Stop Dose Admin Albuterol/Ipratropium 1 vial 07/01/16 09:06 07/01/16 09:16 Duoneb NEB 07/01/16 09:07 1 vial ONCE STA Administration Furosemide 40 mg 07/01/16 09:28 07/01/16 09:35 Lasix IVP 07/01/16 09:29 40 mg ONCE STA Administration Sodium Chloride 1,000 mls @ 1,000 mls/hr 07/01/16 07:22 07/01/16 08:28 Sodium Chloride IV 07/01/16 08:21 500 mls/hr BOLUS STA Administration Lorazepam 1 mg 07/01/16 07:52 07/01/16 07:58 Ativan PO 07/01/16 07:53 1 mg ONCE STA Administration Methylprednisolone Sodium Succinate 125 mg 07/01/16 09:07 07/01/16 09:35 Solu-Medrol 125 Mg IVP 07/01/16 09:08 125 mg ONCE STA Administration Vital Signs: Temp Pulse Resp BP Pulse Ox 07/01/16 06:52 98.6 F 58 L 28 H 120/58 L 91 L Departure - Departure Time of Disposition: 10:34 Disposition: TSF SHORT-TRM HOSP Discharge Problem: Pulmonary edema Instructions: Dyspnea (ED) Condition: Good Pt referred to PMD for follow-up: No Additional Instructions: Please call your Family Physician as soon as possible to schedule a follow-up appointment. Allergies/Adverse Reactions: Allergies Qqwoceu-Dha-Fss Reductase Inhibitor Allergy (Severe, Verified 07/01/16 10:17) made me sick Iodinated Contrast Media - Oral and Adverse Reaction (Verified 07/01/16 10:17) Home Medications: Ambulatory Orders Amlodipine Besylate [Norvasc] 10 mg PO DAILY 04/10/13 Gabapentin 600 mg PO BID 05/20/15 Lisinopril 20 mg PO BID 05/20/15 Pravastatin Sodium 40 mg PO DAILY 05/20/15 Bumetanide [Bumex] 1 mg PO QDAC 07/01/16 Clonidine HCl 0.2 mg PO Q12H 07/01/16 Collagenase Clostridium Hist [Santyl] 1 applic TP DAILY 07/01/16 Diltiazem HCl [Cardizem] 30 mg PO Q6H 07/01/16 Hydralazine HCl [Apresoline] 50 mg PO Q8H 07/01/16 Insulin Detemir [Levemir] 30 unit SUBCUT BEDTIME 07/01/16 Lorazepam [Ativan] 0.5 mg PO Q4H 07/01/16 Mupirocin [Bactroban] 1 applic TP DAILY 07/01/16 Olanzapine [Zyprexa] 5 mg PO DAILY 07/01/16 Potassium Chloride [K-Dur] 20 meq PO DAILY 07/01/16 Quetiapine Fumarate [Seroquel] 25 mg PO DAILY 07/01/16 Sotalol HCl [Betapace] 120 mg PO Q12H 07/01/16 Disposition Discussed With: Patient
== END 2016-07-01 14:50 | disposition short-term general hospital (02) ==
LOC: ED 06:51
DX: J81.1 Chronic pulmonary edema (principal); I10 Essential (primary) hypertension; E11.9 Type 2 diabetes mellitus without complications; I25.10 Atherosclerotic heart disease of native coronary artery without angina pectoris; R53.1 Weakness; R41.82 Altered mental status, unspecified; N18.9 Chronic kidney disease, unspecified; F17.210 Nicotine dependence, cigarettes, uncomplicated; Z79.899 Other long term (current) drug therapy
CPT/HCPCS: 36415; 80053; 81001; 82550; 82803; 83605; 84439; 84443; 84484; 85025; 85379; 87040; 87086; 87186; 93005; 93010; 94640; 96374; 96375; 99285

== ENCOUNTER 2016-07-09 19:09 | Outpatient (CLI) | payer OTHER | END 2016-07-09 19:10 | disposition home or self-care (01) | LOC: AMBL 19:09 | PROVIDERS: ATTEND Internal Medicine Geriatric Medicine | DX: M25.552 Pain in left hip (principal); I69.351 Hemiplegia and hemiparesis following cerebral infarction affecting right dominant side; W19.XXXA Unspecified fall, initial encounter ==

== ENCOUNTER 2016-07-23 00:01 | Inpatient (IN) ==
[2016-07-23 00:14] VITALS: BMI 29.9
[2016-07-23 01:08] LABS: BILIRUBIN,URINE Negative (NEGATIVE); KETONES,URINE Negative (NEGATIVE); LEUKOCYTE ESTERASE ,URINE 1+ (NEGATIVE); NITRITE,URINE Negative (NEGATIVE); PROTEIN,URINE 2+ (NEGATIVE); URINE, BLOOD Trace-lysed (NEGATIVE)
[2016-07-23 01:12] LABS: BASOPHILS # (AUTO) 0.1 K/uL (0-0.2); BASOPHILS % (AUTO) 0.6 % (0.0-3.0); EOSINOPHILS # (AUTO) 0.5 K/ul (0.0-0.7); EOSINOPHILS % (AUTO) 3.7 % (0.0-7.0); HEMATOCRIT 26.1 % (42.0-52.0); HEMOGLOBIN 8.3 g/dl (14.0-18.0); IMMATURE GRANULOCYTE % (AUTO) 0.6 % (0.0-5.0); LYMPHOCYTES # (AUTO) 3.2 K/uL (0.60-3.4); LYMPHOCYTES % (AUTO) 25.3 (10.0-50.0); MEAN CORPUSCULAR HGB CONC 31.8 (31.8-35.4); MEAN CORPUSCULAR VOLUME 81.8 fl (80.0-94.0); MONOCYTES # (AUTO) 1.2 K/uL (0.4-2.0); MONOCYTES % (AUTO) 9.5 (0-10); NEUTROPHILS # (AUTO) 7.7 K/ul (2.0-6.9); NEUTROPHILS % (AUTO) 60.3; PLATELET COUNT 290 10^3/uL (140-440); RED BLOOD COUNT 3.19 10^6/ul (4.70-6.10); WHITE BLOOD COUNT 12.71 K/ul (4.2-10.2)
[2016-07-23 01:20] LABS: PROTHROMBIN TIME 29.1 SEC (9.3-11.0)
[2016-07-23 01:20] LABS: ADD URINE MICROSCOPIC YES
[2016-07-23 01:21] LABS: SPERM,URINE 2+ (NOT PRESENT)
[2016-07-23 01:30] LABS: ALBUMIN 2.5 g/dL (3.4-5.0); ALBUMIN/GLOBULIN RATIO 0.57; ANION GAP 15.1; BILIRUBIN,TOTAL 0.26 mg/dL (0.00-1.20); BUN/CREATININE RATIO 15.55; CALCIUM 8.5 mg/dL (8.2-10.2); CREATININE 2.25 mg/dL (0.60-1.10); POTASSIUM 4.1 mmol/L (3.5-5.1); TOTAL PROTEIN 6.9 g/dL (5.8-8.1)
[2016-07-23] MEDS ORDERED: URO-JET MUCOUSMEMB STA (02:05)
[2016-07-23 02:55] LABS: OCCULT BLOOD INTERNAL QC 1 INTERNAL QC VALID; OCCULT BLOOD SAMPLE 1 NEGATIVE (NEGATIVE)
--- NOTE | 2016-07-23 03:36 | CT ---
EXAM: CT head without contrast 07/23/2016. Sagittal and coronal reformatted images obtained HISTORY: Weakness COMPARISON: 07/01/2016 FINDINGS: There is no evidence of intracranial hemorrhage. The midline is maintained. There is no hydrocephalus. Generalized atrophy. Chronic small vessel ischemic changes. Left frontal and parie diana encephalomalacia appears stable. No cerebellar tonsillar ectopia. Evaluation of the calvarium shows no fracture. Small bilateral mastoid effusions. IMPRESSION: 1. No intracranial hemorrhage. 2. Stable left frontal and parietal encephalomalacia. 3. Generalized atrophy. Chronic small vessel ischemic changes. 4. Small bilateral mastoid effusions.
--- NOTE | 2016-07-23 03:45 | CT ---
EXAM: CT chest without intravenous contrast 07/23/2016. Sagittal and coronal reformatted images ob tained HISTORY: Cough COMPARISON: 07/01/2016 FINDINGS: The heart size appears within normal limits. There is no pericardial effusion. Small right and moderate left-sided pleural effusion. Consolidation overlies the pleural effusions w hich may represent atelectasis and/or pneumonia. Diffuse ground-glass densities may relate to areas of atelectasis, pneumonitis and/or pulmonary edema. Limited views of the upper abdomen shows surgical changes of cholecystectomy. IMPRESSION: 1. Bilateral pleural effusions, left greater than right. 2. Bilateral dependent consolidation may represent atelectasis and/or pneumonia. 3. Ground-glass densities likely due to atelectasis, pneumonitis and/or pulmonary edema.
--- NOTE | 2016-07-23 05:17 | ED.PDOC ---
General ED Provider: Dr. RYAN LEMON-ER Chief Complaint: Weakness Stated Complaint: recently [place]--family brought here as they are no longer able to care for him at home--brother is poa Time Seen by Physician: 00:10 Mode of Arrival: Wheelchair Information Source: Family Exam Limitations: Clinical condition, Dementia, Altered mental status Primary Care Provider: ALEXEY PULIDO Nursing and Triage Documentation Reviewed and Agree: Yes Miscellaneous Complaint Exam - Complex/Multi-System Complaint/Exam Onset/Duration: unknown Symptoms Are: Still present Initial Severity: Mild Current Severity: Mild Location of Pain: none Associated Signs and Symptoms: Reports: Weakness, Edema, Anticoagulation Therapy. Denies: Decreased responsiveness, Confusion, Agitation, Dizziness, Syncope, Headache, Short of air, Cough, Wheezing, Hemoptysis, Chest pain, Palpitations, Nausea, Vomiting, Diarrhea, Abdominal pain, Back pain, Dysuria, Hematemesis, Melena, Decreased oral intake, Fever, Diaphoresis, Immunocompromised, Recent medication changes, Indwelling medical laboratory technical officer, Prior MRSA, Prior VRE, Recent trauma, Remote trauma Related History: Recent Illness (several rcent hospitalizations) Recent Echo/LV Function: Yes Respiratory Distress: None JVD Present: No Tachypnea Present: No Stridor Present: No Abdominal Findings: Present: Normal findings Meningeal Signs Positive: No Gait: Unsteady Gag Reflex Present: No Babinski Sign: Negative Right, Negative Left Skin Findings: Present: Erythema Joint Swelling Present: No In-Dwelling Device Present: No Differential Diagnosis: Other Quality Indicator For Non-Traumatic Chest Pain/Syncope: EKG Performed Review of Systems - Review Of Systems Constitutional: Reports: No symptoms Eyes: Reports: No symptoms Ears, Nose, Mouth, Throat: Reports: No symptoms Respiratory: Reports: Cough Cardiac: Reports: No symptoms GI: Reports: No symptoms : Reports: No symptoms Musculoskeletal: Reports: No symptoms Skin: Reports: No symptoms Neurological: Reports: No symptoms Endocrine: Reports: No symptoms Hematologic/Lymphatic: Reports: No symptoms All Other Systems: Reviewed and Negative Past Medical History - Past Medical History Endocrine: Reports: DM 2 Cardiovascular: Reports: Hypertension, A-Fib Respiratory: Reports: None Hematological: Reports: None Gastrointestinal: Reports: None Genitourinary: Reports: None, CKD Neuro/Psych: Reports: CVA (x 7 with right hemiparesis ) Musculoskeletal: Reports: None Cancer: Reports: None - Surgical History General Surgical History: Reports: Cholecystectomy, Other (HERNIA) - Family History Family History: Reports: Diabetes - Social History Smoking Status: Current every day smoker, Heavy tobacco smoker Hx Substance Use: Yes (Marijuana) Alcohol Screening: None Lives: With family - Immunizations Tetanus Shot up to Date: Yes Physical Exam - Physical Exam Appearance: Well-appearing, No pain distress, Well-nourished Eyes: HERMINIA, EOMI, Conjunctiva clear ENT: Ears normal, Nose normal, Oropharynx normal Neck: Supple Respiratory: Crackles Cardiovascular: RRR, Pulses normal, No rub, No murmur GI/: Soft, Nontender, No masses, Bowel sounds normal, No Organomegaly Musculoskeletal: Normal strength Skin: Warm, Dry, Normal color Neurological: Sensation intact, Motor intact, Reflexes intact, Cranial nerves intact, Alert, Oriented Psychiatric: Affect appropriate, Mood appropriate Interpretation - Radiology Interpretation Radiology Interpretation By: Radiologist Radiology Results: Positive Exam Interpreted: CT Scan - EKG Interpretation Time of EKG #1: 00:45 Rate: Vadim Rhythm: Sinus Ectopy: None Smock: NL ST Segment: Normal Re-Evaluation - Re-Evaluation Time of Re-Evaluation: 05:19 Status: Improved (rstinhg comforably) Vital Signs Stable: Yes Pain Level: 0 Appearance: NAD Lungs: Clear Skin: Warm and Dry Neuro: Alert and Oriented X3 CV: RRR Critical Care Note - Critical Care Note Total Time (mins): 0 Course - Course Hematology/Chemistry: 07/23/16 00:50 07/23/16 00:50 Orders, Labs, Meds: Lab Review 07/23/16 07/23/16 07/23/16 00:35 00:50 02:30 WBC 12.71 H RBC 3.19 L Hgb 8.3 L Hct 26.1 L MCV 81.8 MCH 26.0 L MCHC 31.8 RDW Coeff of Mariano 15.1 H Plt Count 290 Immature Gran % (Auto) 0.6 Neut % (Auto) 60.3 Lymph % (Auto) 25.3 [place] % (Auto) 9.5 Eos % (Auto) 3.7 Baso % (Auto) 0.6 Immature Gran # (Auto) 0.1 Neut # 7.7 H Lymph # 3.2 [place] # 1.2 Eos # 0.5 Baso # 0.1 PT 29.1 H INR 2.83 Sodium 137 Potassium 4.1 Chloride 100 Carbon Dioxide 26 Anion Gap 15.1 BUN 35 H Creatinine 2.25 H Estimated GFR (MDRD) 30.00 BUN/Creatinine Ratio 15.55 Glucose 253 H Calcium 8.5 Total Bilirubin 0.26 AST 12 L ALT 17 Alkaline Phosphatase 70 Total Protein 6.9 Albumin 2.5 L Globulin 4.4 Albumin/Globulin Ratio 0.57 TSH 0.723 Urine Color Yellow Urine Clarity Clear Urine pH 6.0 Ur Specific [place] 1.010 Urine Protein 2+ Urine Glucose (UA) Negative Urine Ketones Negative Urine Blood Trace-lysed Urine Nitrite Negative Urine Bilirubin Negative Urine Urobilinogen 0.2 Ur Leukocyte Esterase 1+ Urine Microscopic RBC 0-2 Urine Microscopic WBC 5-10 Ur Squamous Epith Cells 5-10 Amorphous Sediment 2+ Urine Yeast 2+ Urine Sperm 2+ Stl Occult Blood (IFOB) Negative Stool Occult Blood #2 Pending Stool Occult Blood #3 Pending Orders Category Date Time Status ABG DRAW REQUEST Stat CARDIO 07/23/16 05:13 Ordered EKG-(ED ONLY) Stat CARDIO 07/23/16 00:37 Completed BLADDER SCAN ONCE CARE 07/23/16 02:05 Active Nagy [ED CATHETER INSERTION AND CARE] .ONCE EMERGENCY 07/23/16 02:05 Inactive ABG Stat LAB 07/23/16 05:13 Ordered CBC W/ AUTO DIFF Stat LAB 07/23/16 00:50 Completed COMPREHENSIVE METABOLIC PANEL Stat LAB 07/23/16 00:50 Completed OCCULT BLOOD, STOOL Stat LAB 07/23/16 02:30 Results PT WITH INR Stat LAB 07/23/16 00:50 Completed TSH [THYROID STIMULATING HORMONE] Stat LAB 07/23/16 00:50 Completed URINALYSIS C & S IF INDICATED Stat LAB 07/23/16 00:35 Completed Lidocaine HCl [Uro-Jet] MEDS 07/23/16 02:05 Discontinued 10 ml [id number] ONCE STA CT CHEST W/O CONTRAST Stat RADS 07/23/16 02:[address] HEAD W/O CONTRAST Stat RADS 07/23/16 02:04 Completed Medications Discontinued Medications Generic Name Dose Route Start Last Admin Trade Name Freq PRN Reason Stop Dose Admin Lidocaine HCl 10 ml 07/23/16 02:05 07/23/16 02:33 Uro-Jet [id number] 07/23/16 02:06 Not Given ONCE STA Vital Signs: Temp Pulse Resp BP Pulse Ox 07/23/16 00:03 95.9 F L 58 L 20 137/61 97 Departure - Departure Time of Disposition: 05:20 Disposition: ADMITTED INPATIENT Discharge Problem: Acute respiratory failure Qualifiers: Respiratory failure complication: hypoxia Qualifier Code: (J96.01) Acute respiratory failure with hypoxia Instructions: Pulmonary Edema (ED) Condition: Good Pt referred to PMD for follow-up: No Allergies/Adverse Reactions: Allergies Nncnsyb-Fje-Bju Reductase Inhibitor Allergy (Severe, Verified 07/01/16 10:17) made me sick Iodinated Contrast Media - Oral and Adverse Reaction (Verified 07/01/16 10:17) Home Medications: Ambulatory Orders Amlodipine Besylate [Norvasc] 10 mg PO DAILY 04/10/13 Gabapentin 600 mg PO BID 05/20/15 Lisinopril 20 mg PO BID 05/20/15 Pravastatin Sodium 40 mg PO DAILY 05/20/15 Bumetanide [Bumex] 1 mg PO QDAC 07/01/16 Clonidine HCl 0.2 mg PO Q12H 07/01/16 Collagenase Clostridium Hist [Santyl] 1 applic TP DAILY 07/01/16 Diltiazem HCl [Cardizem] 30 mg PO Q6H 07/01/16 Hydralazine HCl [Apresoline] 50 mg PO Q8H 07/01/16 Insulin Detemir [Levemir] 30 unit SUBCUT BEDTIME 07/01/16 Lorazepam [Ativan] 0.5 mg PO Q4H 07/01/16 Mupirocin [Bactroban] 1 applic TP DAILY 07/01/16 Olanzapine [Zyprexa] 5 mg PO DAILY 07/01/16 Potassium Chloride [K-Dur] 20 meq PO DAILY 07/01/16 Quetiapine Fumarate [Seroquel] 25 mg PO DAILY 07/01/16 Sotalol HCl [Betapace] 120 mg PO Q12H 07/01/16 Warfarin Sodium [Coumadin] 5 mg PO DAILY 07/23/16 Disposition Discussed With: Family
[2016-07-23] MEDS ORDERED: CARDIZEM PO SCH (05:30)
[2016-07-23] MEDS ORDERED: NON-FORMULARY MEDICATION (Sotalol Hcl [Betapace] 120 MG) PO SCH (05:30)
[2016-07-23] MEDS ORDERED: ATIVAN PO SCH (05:30)
[2016-07-23] MEDS ORDERED: APRESOLINE PO SCH (05:30)
[2016-07-23] MEDS ORDERED: NON-FORMULARY MEDICATION (Clonidine Hcl [Clonidine Hcl] 0.2 MG) PO SCH ×22 (05:30)
[2016-07-23 05:32] LABS: ABG PCO2 45.3 mmHg (35-45); ABG PH 7.387 (7.35-7.45)
[2016-07-23 05:33] LABS: ABG BASE EXCESS 2 (-2.0-2.0); ABG HCO3 27.2 (22.0-26.0); ABG TCO2 29 (22.0-28.0)
[2016-07-23] MEDS: XOPENEX 0.63 MG NEB SCH ×3 (06:08→21:36)
[2016-07-23 06:36] LABS: BASOPHILS # (AUTO) 0.1 K/uL (0-0.2); BASOPHILS % (AUTO) 0.5 % (0.0-3.0); EOSINOPHILS # (AUTO) 0.7 K/ul (0.0-0.7); EOSINOPHILS % (AUTO) 5.4 % (0.0-7.0); HEMATOCRIT 29.3 % (42.0-52.0); HEMOGLOBIN 9.4 g/dl (14.0-18.0); IMMATURE GRANULOCYTE % (AUTO) 0.6 % (0.0-5.0); LYMPHOCYTES # (AUTO) 3.2 K/uL (0.60-3.4); LYMPHOCYTES % (AUTO) 25.1 (10.0-50.0); MEAN CORPUSCULAR HEMOGLOBIN 26.1 pg (27.0-31.0); MEAN CORPUSCULAR HGB CONC 32.1 (31.8-35.4); MEAN CORPUSCULAR VOLUME 81.4 fl (80.0-94.0); MONOCYTES # (AUTO) 1.4 K/uL (0.4-2.0); MONOCYTES % (AUTO) 10.9 (0-10); NEUTROPHILS # (AUTO) 7.4 K/ul (2.0-6.9); NEUTROPHILS % (AUTO) 57.5; PLATELET COUNT 272 10^3/uL (140-440); WHITE BLOOD COUNT 12.89 K/ul (4.2-10.2)
[2016-07-23 06:53] LABS: ALBUMIN 2.5 g/dL (3.4-5.0); ALBUMIN/GLOBULIN RATIO 0.57; ANION GAP 14.1; BILIRUBIN,TOTAL 0.26 mg/dL (0.00-1.20); BUN/CREATININE RATIO 15.6; CALCIUM 8.6 mg/dL (8.2-10.2); CREATININE 2.05 mg/dL (0.60-1.10); POTASSIUM 4.1 mmol/L (3.5-5.1); TOTAL PROTEIN 6.9 g/dL (5.8-8.1)
[2016-07-23] MEDS: BUMEX IVP SCH ×2 (08:35→14:49)
[2016-07-23] MEDS: ZESTRIL PO SCH ×2 (08:37→21:50)
[2016-07-23] MEDS: PRAVACHOL PO SCH (08:38)
[2016-07-23] MEDS: NEURONTIN PO SCH ×2 (08:38→21:48)
[2016-07-23] MEDS: BETAPACE PO SCH ×2 (08:38→21:49)
[2016-07-23] MEDS: CATAPRES PO SCH ×2 (08:39→21:50)
[2016-07-23] MEDS: NORVASC PO SCH (08:39)
[2016-07-23] MEDS: K-DUR PO SCH (08:39)
[2016-07-23] MEDS ORDERED: NON-FORMULARY MEDICATION (Amlodipine Besylate [Norvasc] 10 MG) PO SCH ×22 (09:00)
[2016-07-23] MEDS: BACTROBAN TP SCH (09:00)
[2016-07-23] MEDS ORDERED: SEROQUEL PO SCH (09:00)
[2016-07-23] MEDS ORDERED: NON-FORMULARY MEDICATION (Lisinopril [Lisinopril] 20 MG) PO SCH ×22 (09:00)
[2016-07-23] MEDS: SANTYL TP SCH (09:00)
[2016-07-23] MEDS: AZACTAM 1 GM in SODIUM CHLORIDE 50 ML IV SCH ×2 (10:09→21:52)
[2016-07-23] MEDS: ATIVAN PO SCH ×4 (10:27→21:48)
[2016-07-23] MEDS: APRESOLINE PO SCH ×3 (11:19→21:50)
[2016-07-23] MEDS: CARDIZEM PO SCH ×3 (11:24→17:11)
[2016-07-23] MEDS ORDERED: NON-FORMULARY MEDICATION (Olanzapine [Zyprexa] 5 MG) PO SCH ×22 (17:00)
[2016-07-23] MEDS: COUMADIN PO SCH (17:11)
[2016-07-23] MEDS: ZYPREXA PO SCH (17:11)
[2016-07-23] MEDS: LEVEMIR SUBCUT SCH (21:53)
[2016-07-24 00:04] LABS: OCCULT BLOOD INTERNAL QC 2 INTERNAL QC VALID; OCCULT BLOOD INTERNAL QC 3 INTERNAL QC VALID; OCCULT BLOOD SAMPLE 2 NO SPECIMEN RECEIVED (NEGATIVE); OCCULT BLOOD SAMPLE 3 NO SPECIMEN RECEIVED (NEGATIVE)
[2016-07-24] MEDS: CARDIZEM PO SCH ×5 (00:32→23:29)
[2016-07-24] MEDS: APRESOLINE PO SCH ×3 (05:34→20:16)
[2016-07-24] MEDS: XOPENEX 0.63 MG NEB SCH ×3 (05:50→21:42)
[2016-07-24 06:51] LABS: BASOPHILS % (AUTO) 0.3 % (0.0-3.0); EOSINOPHILS # (AUTO) 0.9 K/ul (0.0-0.7); EOSINOPHILS % (AUTO) 7.4 % (0.0-7.0); HEMATOCRIT 27.6 % (42.0-52.0); HEMOGLOBIN 8.8 g/dl (14.0-18.0); IMMATURE GRANULOCYTE % (AUTO) 0.8 % (0.0-5.0); LYMPHOCYTES # (AUTO) 2.7 K/uL (0.60-3.4); MEAN CORPUSCULAR HGB CONC 31.9 (31.8-35.4); MEAN CORPUSCULAR VOLUME 81.4 fl (80.0-94.0); MONOCYTES % (AUTO) 8.5 (0-10); PLATELET COUNT 259 10^3/uL (140-440); RED BLOOD COUNT 3.39 10^6/ul (4.70-6.10)
[2016-07-24 07:01] LABS: PROTHROMBIN TIME 26.2 SEC (9.3-11.0)
[2016-07-24 07:10] LABS: ALBUMIN 2.4 g/dL (3.4-5.0); ALBUMIN/GLOBULIN RATIO 0.56; ANION GAP 13.5; BILIRUBIN,TOTAL 0.25 mg/dL (0.00-1.20); BUN/CREATININE RATIO 17.41; CALCIUM 8.4 mg/dL (8.2-10.2); CREATININE 2.01 mg/dL (0.60-1.10); POTASSIUM 4.5 mmol/L (3.5-5.1); TOTAL PROTEIN 6.7 g/dL (5.8-8.1)
[2016-07-24] MEDS: AZACTAM 1 GM in SODIUM CHLORIDE 50 ML IV SCH (09:35)
[2016-07-24] MEDS: BETAPACE PO SCH ×2 (09:35→20:14)
[2016-07-24] MEDS: PRAVACHOL PO SCH (09:35)
[2016-07-24] MEDS: ZESTRIL PO SCH ×2 (09:36→20:15)
[2016-07-24] MEDS: BUMEX IVP SCH (09:37)
[2016-07-24] MEDS: CATAPRES PO SCH ×2 (09:37→20:16)
[2016-07-24] MEDS: K-DUR PO SCH (09:37)
[2016-07-24] MEDS: NORVASC PO SCH (09:37)
[2016-07-24] MEDS: NEURONTIN PO SCH ×2 (09:37→20:16)
[2016-07-24] MEDS: SANTYL TP SCH (09:38)
[2016-07-24] MEDS: BACTROBAN TP SCH (09:38)
[2016-07-24] MEDS: COUMADIN PO SCH (18:27)
[2016-07-24] MEDS: ZYPREXA PO SCH (18:27)
[2016-07-24] MEDS: ATIVAN PO SCH (20:15)
[2016-07-24] MEDS: LEVEMIR SUBCUT SCH (20:17)
[2016-07-25] MEDS: XOPENEX 0.63 MG NEB SCH ×3 (05:04→22:19)
[2016-07-25] MEDS: APRESOLINE PO SCH ×3 (05:35→20:34)
[2016-07-25] MEDS: CARDIZEM PO SCH ×3 (05:35→17:59)
[2016-07-25 05:51] LABS: BASOPHILS # (AUTO) 0.1 K/uL (0-0.2); BASOPHILS % (AUTO) 0.4 % (0.0-3.0); EOSINOPHILS # (AUTO) 0.9 K/ul (0.0-0.7); EOSINOPHILS % (AUTO) 7.1 % (0.0-7.0); HEMATOCRIT 26.1 % (42.0-52.0); HEMOGLOBIN 8.2 g/dl (14.0-18.0); IMMATURE GRANULOCYTE % (AUTO) 1.5 % (0.0-5.0); LYMPHOCYTES # (AUTO) 3.1 K/uL (0.60-3.4); LYMPHOCYTES % (AUTO) 23.5 (10.0-50.0); MEAN CORPUSCULAR HGB CONC 31.4 (31.8-35.4); MEAN CORPUSCULAR VOLUME 82.9 fl (80.0-94.0); MONOCYTES # (AUTO) 1.3 K/uL (0.4-2.0); MONOCYTES % (AUTO) 9.8 (0-10); NEUTROPHILS # (AUTO) 7.7 K/ul (2.0-6.9); NEUTROPHILS % (AUTO) 57.7; PLATELET COUNT 277 10^3/uL (140-440); RED BLOOD COUNT 3.15 10^6/ul (4.70-6.10); WHITE BLOOD COUNT 13.29 K/ul (4.2-10.2)
[2016-07-25 06:12] LABS: ALBUMIN 2.4 g/dL (3.4-5.0); ALBUMIN/GLOBULIN RATIO 0.59; ANION GAP 14.7; BILIRUBIN,TOTAL 0.23 mg/dL (0.00-1.20); BUN/CREATININE RATIO 18.39; CALCIUM 8.5 mg/dL (8.2-10.2); CREATININE 2.12 mg/dL (0.60-1.10); POTASSIUM 4.7 mmol/L (3.5-5.1); TOTAL PROTEIN 6.5 g/dL (5.8-8.1)
[2016-07-25] MEDS: NORVASC PO SCH (08:04)
[2016-07-25] MEDS: NEURONTIN PO SCH ×3 (08:04→20:36)
[2016-07-25] MEDS: ZESTRIL PO SCH ×2 (08:04→20:34)
[2016-07-25] MEDS: PRAVACHOL PO SCH (08:04)
[2016-07-25] MEDS: CATAPRES PO SCH ×2 (08:05→20:36)
[2016-07-25] MEDS: BETAPACE PO SCH ×2 (08:05→20:34)
[2016-07-25] MEDS: K-DUR PO SCH (08:05)
[2016-07-25] MEDS: BUMEX IVP SCH (08:38)
[2016-07-25 08:44] LABS: PROTHROMBIN TIME 19.5 SEC (9.3-11.0)
[2016-07-25 11:16] LABS: HIV INTERNAL QC INTERNAL QC VALID; HIV-1 p24 ANTIGEN SCREEN NEGATIVE (NEGATIVE); HIV-1/2 ANTIBODY SCREEN NEGATIVE (NEGATIVE)
[2016-07-25] MEDS: SANTYL TP SCH (12:07)
[2016-07-25] MEDS: BACTROBAN TP SCH (12:07)
[2016-07-25] MEDS: ZYPREXA PO SCH (16:55)
[2016-07-25] MEDS: COUMADIN PO SCH (16:56)
[2016-07-25] MEDS: ATIVAN PO SCH (20:34)
[2016-07-25] MEDS: LEVEMIR SUBCUT SCH (21:31)
[2016-07-26] MEDS: CARDIZEM PO SCH ×2 (01:28→05:22)
[2016-07-26 05:11] VITALS: BP 116/57; TEMP 99.3
[2016-07-26] MEDS: XOPENEX 0.63 MG NEB SCH (05:17)
[2016-07-26] MEDS: APRESOLINE PO SCH (05:22)
[2016-07-26] MEDS ORDERED: BUMEX PO SCH (06:30)
[2016-07-26] MEDS: ZESTRIL PO SCH (08:42)
[2016-07-26] MEDS: SANTYL TP SCH (08:42)
[2016-07-26] MEDS: PRAVACHOL PO SCH (08:42)
[2016-07-26] MEDS: NORVASC PO SCH (08:43)
[2016-07-26] MEDS: CATAPRES PO SCH (08:43)
[2016-07-26] MEDS: NEURONTIN PO SCH (08:43)
[2016-07-26] MEDS: BETAPACE PO SCH (08:44)
[2016-07-26] MEDS: BACTROBAN TP SCH (08:45)
[2016-07-26] MEDS: K-DUR PO SCH (08:49)
--- NOTE | 2016-07-26 09:20 | HP ---
CHIEF COMPLAINT: We can't take care of him anymore. DISCUSSION: This a 60 year old gentleman with a previous history of stroke on Coumadin therapy. Originally had multiple admissions to local nursing facilities and hospitals. Mr. Carrillo's primary care doctor is Dr. Schofield. Mr. Carrillo recently was hospitalized at [facility] and because of acute respiratory failure subsequently was intubated extubated himself and left the hospital against medical advised and then was readmitted and spent several days in the ICU and then subsequently admitted to the service establishment attendant care unit at [facility]. He was subsequently discharged and then readmitted. At one point he was admitted to [facility] but left the facility. The family brought him to the emergency department and said that they were not longer able to care for him at home. He was noted to have increased leg swelling and shortness of breath. His oxygen saturations here were somewhere between 60-70% on room air. Chest CT did reveal bilateral plural effusions. He's got not fever or chills. At this point, he was admitted for diarrhetic therapy. It should be noted, that a recent echo did reveal evidence of pulmonary hypertension without any significant cardiomyopathy noted on echo done at [facility] in June of this year and he was subsequently admitted. MEDICATIONS: Norvasc Gabapentin Lisinopril Pravastatin Bumex Clonidine Cardizem Apresoline Levemir Ativan Bactroban ointment Zyprexa K-Dur Seroquel Betapace Coumadin ALLERGIES: Statins drugs Contrast dye PAST MEDICAL HISTORY: History of previous stroke with right sided hemiparesis Atrial fibrillation on Coumadin Hypertension Hyperlipidemia Pulmonary hypertension Insulin treated type two diabetes Diabetic neuropathy Behavioral issues, questionable bipolar disorder SURGERIES: Cholecystectomy Hernia repair SOCIAL HISTORY: The patient is a one pack per day smoker, denies alcohol or illicit drug use. FAMILY HISTORY: Reviewed and found to positive for diabetes REVIEW OF SYSTEMS: No headaches, visual changes, tinnitus, hemoptysis, abdominal pain. blood in the stool, urinary symptoms or seizures. Chest pain, he has been short of breath with exertion. PHYSICAL EXAMINATION: V/S: Temperature 96, pulse 69, blood pressure 129/73 and respirations 20. HEENT: Pupils are round. NECK: Supple. CHEST: Clear. CARDIOVASCULAR: Regular rate and rhythm. ABDOMEN: Soft, nontender. EXTREMITIES: Distal extremities reveals +1 edema with numerous abrasions over the anterior legs. ASSESSMENT: 1. Acute respiratory failure secondary to #2 2. Volume overload secondary to #3 3. Pulmonary hypertension 4. Atrial fibrillation 5. Hypertension 6. Hyperlipidemia 7. Type 2 Diabetes, insulin treated 8. Probably bipolar disorder 9. Chronic kidney disease, stage 3 PLAN: 1. Admission 2. Give Diaeresis 3. Bumex 4. Monitor renal function 5. He does have a history of chronic anemia presumably secondary to his chronic kidney disease 6. His stool was Negative in the emergency department. 7. His brother is the power of assistant county attorney stated that they can no longer care for him at home and wishing for half-way placement. We will have Social Service see. 8. Please see orders. MTDD
--- NOTE | 2016-07-26 09:26 | DS ---
PRINCIPAL DIAGNOSIS: 1. Acute respiratory failure secondary to #2 2. Volume overload secondary to #3 3. Pulmonary Hypertension 4. Chronic kidney disease, stage 3 5. Diabetes Mellitus, type 2 insulin treated 6. Hypertension 7. Diabetic neuropathy 8. Hyperlipidemia 9. Bipolar disorder 10. Atrial fibrillation. DISPOSITION: Transfer to the nursing facility DISCUSSION: This a 60 year old gentleman with a previous history of stroke on Coumadin therapy. Originally had multiple admissions to local nursing facilities and hospitals. Mr. Carrillo's primary care doctor is Dr. Schofield. Mr. Carirllo recently was hospitalized at [facility] and because of acute respiratory failure subsequently was intubated extubated himself and left the hospital against medical advised and then was readmitted and spent several days in the ICU and then subsequently admitted to the assisted care unit at [facility]. He was subsequently discharged and then readmitted. At one point he was admitted to [facility] but left the facility. The family brought him to the emergency department and said that they were not longer able to care for him at home. He was noted to have increased leg swelling and shortness of breath. His oxygen saturations here were somewhere between 60-70% on room air. Chest CT did reveal bilateral plural effusions. He's got not fever or chills. At this point, he was admitted for diarrhetic therapy. It should be noted, that a recent echo did reveal evidence of pulmonary hypertension without any significant cardiomyopathy noted on echo done at [facility] in June of this year and he was subsequently admitted. CLINICAL COURSE: Mr. Carrillo did very well with diaeresis. His blood count remained stable about 26 and his INR remained stable on Coumadin. His renal function actually improved somewhat with the diaeresis. His creatinine remained about with a level of 2 and GFR about 33. His leg edema improved. At this point the staff here obtained an admission at a local nursing facility and at this point he is being discharged with medication per reconciliation. I'm going to recommend getting a CBC, BNP as well as a ProTime in one week. Should be noted that he was quite sedated on admission and we have adjusted his antianxiety and antipsychotic medicines. At time of discharge he was very pleasant, alert and oriented. It should be noted at discharge that patient will not be followed by the undersigned but will be followed by the physician of the facilities choosing. LITO
== END 2016-07-26 11:15 | DRG 189 ==
LOC: ED 00:01 → MEDSURG A 05:45
PROVIDERS: ADMIT Family Medicine; ATTEND Family Medicine
DX: J96.01 Acute respiratory failure with hypoxia (principal); J90 Pleural effusion, not elsewhere classified; I69.351 Hemiplegia and hemiparesis following cerebral infarction affecting right dominant side; E87.70 Fluid overload, unspecified; I27.2 Other secondary pulmonary hypertension; I12.9 Hypertensive chronic kidney disease with stage 1 through stage 4 chronic kidney disease, or unspecified chronic kidney disease; E11.22 Type 2 diabetes mellitus with diabetic chronic kidney disease; N18.3 Chronic kidney disease, stage 3 (moderate); E11.40 Type 2 diabetes mellitus with diabetic neuropathy, unspecified; E78.5 Hyperlipidemia, unspecified; F31.9 Bipolar disorder, unspecified; R53.1 Weakness; R41.82 Altered mental status, unspecified; R60.0 Localized edema; I10 Essential (primary) hypertension; I48.91 Unspecified atrial fibrillation; F17.200 Nicotine dependence, unspecified, uncomplicated; Z79.01 Long term (current) use of anticoagulants; Z79.4 Long term (current) use of insulin; Z79.899 Other long term (current) drug therapy
CPT/HCPCS: 36415; 80053; 81001; 82272; 82803; 84443; 85025; 85610; 87081; 87086; 93005; 93010; 94640; 99284; 99285

== ENCOUNTER 2016-08-02 05:13 | Outpatient (CLI) | payer OTHER ==
[2016-08-02 05:42] VITALS: BMI 32.1
== END 2016-08-02 05:14 ==
LOC: AMBL 05:13
PROVIDERS: ATTEND Emergency Medicine
DX: R41.0 Disorientation, unspecified (principal); J18.9 Pneumonia, unspecified organism; N19 Unspecified kidney failure; J96.01 Acute respiratory failure with hypoxia; I50.9 Heart failure, unspecified; I10 Essential (primary) hypertension; E11.9 Type 2 diabetes mellitus without complications; Z86.73 Personal history of transient ischemic attack (TIA), and cerebral infarction without residual deficits

== ENCOUNTER 2016-08-02 05:17 | Emergency (ER) ==
[2016-08-02 05:42] VITALS: BP 135/59; TEMP 99.4; BMI 32.1
--- NOTE | 2016-08-02 05:52 | ED.PDOC ---
General Stated Complaint: Patient was found hypoxic at snf, snet here for the evaluation, was discharged from hospital couple days ago, now c/o short of breath. Time Seen by Physician: 05:50 Mode of Arrival: Walk-In Information Source: Patient Nursing and Triage Documentation Reviewed and Agree: Yes <DAMASO CARTWRIGHT - Last Filed: 08/02/16 05:49> <ANTON PATHAK JR - Last Filed: 08/02/16 08:25> ED Provider: Dr. ANTON PATHAK JR Chief Complaint: Shortness of Air Primary Care Provider: NEVAEH GEE Respiratory Complaint Exam - Shortness of Air Complaint/Exam Symptoms Are: Still present Timing: Constant Initial Severity: Moderate Current Severity: Mild Character: Reports: Dyspnea at rest Aggravating: Reports: None Alleviating: Reports: Bronchodilators, EMS treatment, Oxygen Associated Signs and Symptoms: Reports: Cough, Wheezing. Denies: Chest pain with cough, Chest pain, Fever, Chills, Diaphoresis, Nasal congestion, Dizziness , Calf pain, Calf swelling, Edema, Rapid breathing, Labored breathing, Decreased intake Related History: Reports: Similar episode History of Healthcare-Acquired Pneumonia: No Pulmonary Embolism Risk Factors: Reports: None Cardiac Risk Factors: Reports: None Pseudomonas Risk Factors: Reports: None Tuberculosis Risk Factors: Reports: None Home Oxygen Use: Yes Recent Stress Test: No Recent Echo/LV Function: No Respiratory Distress: None Stridor Present: No Tracheal Deviation: No Subcutaneous Emphysema: No Accessory Muscle Use: No Retractions: Not Present Diminished Breath Sounds: No Prolonged Expiratory Phase: No Unable to Speak Full Sentences: No Fatigue: No Leg Swelling: No Jamal's Sign Present: No Differential Diagnoses: CHF, COPD Exacerbation, Pneumonia <DAMASO CARTWRIGHT - Last Filed: 08/02/16 05:49> Review of Systems - Review Of Systems Constitutional: Reports: Malaise, Weakness Eyes: Reports: No symptoms Ears, Nose, Mouth, Throat: Reports: No symptoms Respiratory: Reports: Cough, Short of air Cardiac: Reports: No symptoms GI: Reports: No symptoms : Reports: No symptoms Musculoskeletal: Reports: No symptoms Skin: Reports: No symptoms Neurological: Reports: No symptoms Endocrine: Reports: No symptoms Hematologic/Lymphatic: Reports: No symptoms All Other Systems: Reviewed and Negative <DAMASO CARTWRIGHT - Last Filed: 08/02/16 05:49> Past Medical History - Past Medical History Previously Healthy: No Endocrine: Reports: DM 2 Cardiovascular: Reports: Hypertension, A-Fib, Other (PAD) Respiratory: Reports: None Hematological: Reports: None Gastrointestinal: Reports: None Genitourinary: Reports: None, CKD Neuro/Psych: Reports: CVA (x 7 with right hemiparesis ) Musculoskeletal: Reports: None Cancer: Reports: None - Surgical History General Surgical History: Reports: Cholecystectomy, Other (HERNIA) - Family History Family History: Reports: Diabetes - Social History Smoking Status: Current every day smoker, Heavy tobacco smoker Smoking Cessation Counseling Time: > 3 min - 10 min Hx Substance Use: Yes (Marijuana) Alcohol Screening: None - Immunizations Tetanus Shot up to Date: Yes <EMILYANDIEDAMASO Maza - Last Filed: 08/02/16 05:49> Physical Exam - Physical Exam Appearance: Ill-appearing, Obese Ill-appearing: Moderate Eyes: Conjunctiva pale ENT: Ears normal, Nose normal, Oropharynx normal Respiratory: Airway patent, Breath sounds diminished, Crackles Cardiovascular: RRR, Pulses normal, No rub, No murmur GI/: Soft, Nontender, No masses, Bowel sounds normal, No Organomegaly Musculoskeletal: No edema, No calf tenderness, Limited ROM, Limited strength Skin: Warm, Dry, Normal color Neurological: Sensation intact, Reflexes intact, Cranial nerves intact, Alert, Oriented Psychiatric: Affect appropriate, Mood appropriate <DAMASO CARTWRIGHT - Last Filed: 08/02/16 05:49> Re-Evaluation - Re-Evaluation Time of Re-Evaluation: 07:37 (confused discwith Brother Jacob Carrillo; patietn was not to be intubated acknowleges code status will discuss with Dr Coronado(Dr Gee only at [facility])) Status: Improved <ANTON PATHAK JR - Last Filed: 08/02/16 08:25> Physician Notification - Case Discussed Physician Notified: emily Time of Notification: 08:06 (is now seen by Dr Gee) Physician Notified: Lauren)will contact DR Bains Time of Notification: 08:06 Admit/Transition Orders Entered by ED Provider: No (Disc with Jacob Carrillo- patietn was DNR will disc with Dr Coronado, edith Obrien) Reviewed With: Dr Bains Admit To: SCU <ANTON PATHAK JR - Last Filed: 08/02/16 08:25> Critical Care Note - Critical Care Note Total Time (mins): 0 <DAMASO CARTWRIGHT - Last Filed: 08/02/16 05:49> Course - Course Hematology/Chemistry: 08/02/16 06:01 08/02/16 06:01 <ANTON PATHAK JR - Last Filed: 08/02/16 08:25> - Course Orders, Labs, Meds: Lab Review 08/02/16 08/02/16 08/02/16 05:00 05:48 06:01 WBC 16.09 H RBC 3.03 L Hgb 7.9 L Hct 25.2 L MCV 83.2 MCH 26.1 L MCHC 31.3 L RDW Coeff of Mariano 16.3 H Plt Count 246 Immature Gran % (Auto) 0.4 Neut % (Auto) 76.5 Lymph % (Auto) 14.4 Andrews % (Auto) 6.7 Eos % (Auto) 1.6 Baso % (Auto) 0.4 Immature Gran # (Auto) 0.1 Neut # 12.3 H Lymph # 2.3 Andrews # 1.1 Eos # 0.3 Baso # 0.1 PT 40.9 H INR 3.97 H Puncture Site Lb O2 Saturation 99.0 ABG pH 7.352 ABG pCO2 42.9 ABG pO2 156.0 H ABG HCO3 23.8 ABG Total CO2 25 ABG Base Excess -2 Shiv Test + O2 Delivery Device Nrb Oxygen Liter Flow 10.00 FiO2 % 100.0 Sodium 136 Potassium 5.9 H Chloride 102 Carbon Dioxide 24 Anion Gap 15.9 BUN 61 H* Creatinine 3.66 H* Estimated GFR (MDRD) 17.00 BUN/Creatinine Ratio 16.66 Glucose 85 Calcium 9.0 Total Bilirubin 0.48 AST 17 ALT 20 Alkaline Phosphatase 112 Total Creatine Kinase 78 Troponin I 0.0110 B-Natriuretic Peptide 857 H Total Protein 7.4 Albumin 2.9 L Globulin 4.5 Albumin/Globulin Ratio 0.64 Orders Category Date Time Status ABG DRAW REQUEST Stat CARDIO 08/02/16 05:49 Completed EKG-(ED ONLY) Stat CARDIO 08/02/16 05:48 Completed NEBULIZER TREATMENT Stat CARDIO 08/02/16 05:55 Completed Saline Lock [ED IV/MEDIPORT/POWERPORT] .ONCE EMERGENCY 08/02/16 05:48 Active ABG Stat LAB 08/02/16 05:48 Completed B-TYPE NATRIURETIC PEPTIDE Stat LAB 08/02/16 06:01 Completed C-REACTIVE PROTEIN Stat LAB 08/02/16 05:00 Stop Req CBC W/ AUTO DIFF Stat LAB 08/02/16 06:01 Completed COMPREHENSIVE METABOLIC PANEL Stat LAB 08/02/16 06:01 Completed CREATINE KINASE Stat LAB 08/02/16 06:01 Completed PROCALCITONIN Stat LAB 08/02/16 Ordered PT WITH INR Stat LAB 08/02/16 05:00 Completed TROPONIN I Stat LAB 08/02/16 06:01 Completed UA [URINALYSIS C & S IF INDICATED] Stat LAB 08/02/16 07:56 Uncollected 0.9 % Sodium Chloride [Saline Flush] MEDS 08/02/16 05:48 Active 1 syr IVF PRN PRN Ipratropium/Albuterol Neb [Duoneb] MEDS 08/02/16 05:55 Discontinued 1 vial NEB ONCE STA Methylprednisolone Sod Succ/Pf [Solu-Medrol 125 mg] MEDS 08/02/16 05:55 Discontinued 80 mg IVP ONCE STA Vancomycin HCl [Vancomycin] 1 gm MEDS 08/02/16 05:55 Discontinued 0.9 % Sodium Chloride [Sodium Chloride] [address] ABDOMEN/PELVIS WO CONTRAST Stat RADS 08/02/16 05:[address] CHEST W/O CONTRAST Stat RADS 08/02/16 05:48 Completed Medications Generic Name Dose Route Start Last Admin Trade Name Freq PRN Reason Stop Dose Admin Sodium Chloride 1 syr 08/02/16 05:48 Saline Flush IVF PRN PRN To flush IV Discontinued Medications Generic Name Dose Route Start Last Admin Trade Name Freq PRN Reason Stop Dose Admin Albuterol/Ipratropium 1 vial 08/02/16 05:55 08/02/16 06:48 Duoneb NEB 08/02/16 05:56 1 vial ONCE STA Administration Vancomycin HCl 1 gm/ Sodium 250 mls @ 250 mls/hr 08/02/16 05:55 08/02/16 06: 51 Chloride IV 08/02/16 06:54 250 mls/hr ONCE STA Administration Methylprednisolone Sodium Succinate 80 mg 08/02/16 05:55 08/02/16 06:50 Solu-Medrol 125 Mg IVP 08/02/16 05:56 80 mg ONCE STA Administration Vital Signs: Temp Pulse Resp BP Pulse Ox 08/02/16 05:25 99.4 F 47 L 24 135/59 L 97 Departure <DAMASO CARTWRIGHT - Last Filed: 08/02/16 05:49> - Departure Time of Disposition: 08:22 Pt referred to PMD for follow-up: No (hospitalist) <ANTON PATHAK JR - Last Filed: 08/02/16 08:25> - Departure Disposition: TSF SHORT-TRM HOSP Discharge Problem: Acute respiratory failure, Renal failure (ARF), acute on chronic, Pneumonia Condition: Fair Allergies/Adverse Reactions: Allergies Gobptqk-Sli-Exb Reductase Inhibitor Allergy (Severe, Verified 08/02/16 05:42) made me sick Iodinated Contrast Media - Oral and Adverse Reaction (Verified 08/02/16 05:42) Home Medications: Ambulatory Orders Amlodipine Besylate [Norvasc] 10 mg PO DAILY 04/10/13 Gabapentin 600 mg PO BID 05/20/15 Lisinopril 20 mg PO BID 05/20/15 Pravastatin Sodium 40 mg PO DAILY 05/20/15 Bumetanide [Bumex] 1 mg PO QDAC 07/01/16 Clonidine HCl 0.2 mg PO Q12H 07/01/16 Collagenase Clostridium Hist [Santyl] 1 applic TP DAILY 07/01/16 Diltiazem HCl [Cardizem] 30 mg PO Q6H 07/01/16 Hydralazine HCl [Apresoline] 50 mg PO Q8H 07/01/16 Insulin Detemir [Levemir] 30 unit SUBCUT BEDTIME 07/01/16 Mupirocin [Bactroban] 1 applic TP DAILY 07/01/16 Olanzapine [Zyprexa] 5 mg PO DAILY 07/01/16 Potassium Chloride [K-Dur] 20 meq PO DAILY 07/01/16 Quetiapine Fumarate [Seroquel] 25 mg PO DAILY 07/01/16 Sotalol HCl [Betapace] 120 mg PO Q12H 07/01/16 Warfarin Sodium [Coumadin] 5 mg PO DAILY 07/23/16 Lorazepam 0.5 mg PO TID 08/02/16
[2016-08-02] MEDS ORDERED: VANCOMYCIN 1 GM in SODIUM CHLORIDE 250 ML IV STA (05:55)
[2016-08-02] MEDS ORDERED: DUONEB NEB STA (05:55)
[2016-08-02] MEDS ORDERED: SOLU-MEDROL 125 MG IVP STA (05:55)
[2016-08-02 06:03] LABS: BASOPHILS # (AUTO) 0.1 K/uL (0-0.2); BASOPHILS % (AUTO) 0.4 % (0.0-3.0); EOSINOPHILS # (AUTO) 0.3 K/ul (0.0-0.7); EOSINOPHILS % (AUTO) 1.6 % (0.0-7.0); HEMATOCRIT 25.2 % (42.0-52.0); HEMOGLOBIN 7.9 g/dl (14.0-18.0); IMMATURE GRANULOCYTE % (AUTO) 0.4 % (0.0-5.0); LYMPHOCYTES # (AUTO) 2.3 K/uL (0.60-3.4); LYMPHOCYTES % (AUTO) 14.4 (10.0-50.0); MEAN CORPUSCULAR HEMOGLOBIN 26.1 pg (27.0-31.0); MEAN CORPUSCULAR HGB CONC 31.3 (31.8-35.4); MEAN CORPUSCULAR VOLUME 83.2 fl (80.0-94.0); MONOCYTES # (AUTO) 1.1 K/uL (0.4-2.0); MONOCYTES % (AUTO) 6.7 (0-10); NEUTROPHILS # (AUTO) 12.3 K/ul (2.0-6.9); NEUTROPHILS % (AUTO) 76.5; PLATELET COUNT 246 10^3/uL (140-440); RED BLOOD COUNT 3.03 10^6/ul (4.70-6.10); WHITE BLOOD COUNT 16.09 K/ul (4.2-10.2)
[2016-08-02 06:28] LABS: ABG BASE EXCESS -2 (-2.0-2.0); ABG HCO3 23.8 (22.0-26.0); ABG PCO2 42.9 mmHg (35-45); ABG PH 7.352 (7.35-7.45); ABG TCO2 25 (22.0-28.0)
[2016-08-02 06:33] LABS: ALBUMIN 2.9 g/dL (3.4-5.0); ALBUMIN/GLOBULIN RATIO 0.64; ANION GAP 15.9; BILIRUBIN,TOTAL 0.48 mg/dL (0.00-1.20); BUN/CREATININE RATIO 16.66; POTASSIUM 5.9 mmol/L (3.5-5.1); TOTAL PROTEIN 7.4 g/dL (5.8-8.1); TROPONIN I 0.011 ng/ml (0.0000-0.4000)
[2016-08-02 06:35] LABS: CREATININE 3.66 mg/dL (0.60-1.10)
--- NOTE | 2016-08-02 07:25 | CT ---
Exam: CT examination of the chest abdomen and pelvis without intravenous contrast. Comparison: 07/23/2016. Reason for exam: Shortness of breath. FINDINGS: Image interpretation is limited by the lack of intravenous contrast administration. Moderately sized bilateral pleural effusions with overlying consolidation and atelectasis. No pneum othorax. The heart is not enlarged. Old granulomatous disease is seen within the mediastinum. Pro minent appearing lymph nodes are seen throughout the mediastinal soft tissues and axilla measuring u p to 1.3 cm in the short axis. The aorta is normal in course and caliber. No osteoblastic or osteol ytic lesions. The gallbladder is been removed. The liver, spleen, adrenal glands, and pancreas appear grossly unre markable. No hydronephrosis, hydroureter, or nephrolithiasis. There are similar appearing inflammatory change s in the perinephric fat. No focal small bowel dilatation or transition point. The appendix is not seen. No intra-abdominal free air. There is a small amount of pelvic free fluid. No inflammatory changes in the mesenteric or pelvic fat. Infiltrative/inflammatory changes in the soft tissues consistent w ith anasarca. Impression: 1. Enlarging bilateral pleural effusions of overlying atelectasis and pneumonia. Recommend follow-up evaluation to document improvement / resolution. 2. Nonspecific pelvic free fluid is incompletely evaluated without intravenous contrast. Recommend follow-up evaluation to document resolution. 3. Prominent mediastinal and axillary lymph nodes are likely reactive. 4. Anasarca. Report faxed at [phone] hours on 08/02/2016
[2016-08-02 07:32] LABS: PROTHROMBIN TIME 40.9 SEC (9.3-11.0)
== END 2016-08-02 09:10 | disposition short-term general hospital (02) ==
LOC: ED 05:17
DX: J96.00 Acute respiratory failure, unspecified whether with hypoxia or hypercapnia (principal); J18.9 Pneumonia, unspecified organism; I12.9 Hypertensive chronic kidney disease with stage 1 through stage 4 chronic kidney disease, or unspecified chronic kidney disease; N18.9 Chronic kidney disease, unspecified; N17.9 Acute kidney failure, unspecified; E11.9 Type 2 diabetes mellitus without complications; R06.02 Shortness of breath; I73.9 Peripheral vascular disease, unspecified; Z79.899 Other long term (current) drug therapy; Z79.4 Long term (current) use of insulin; Z79.01 Long term (current) use of anticoagulants; Z86.73 Personal history of transient ischemic attack (TIA), and cerebral infarction without residual deficits; Z72.0 Tobacco use
CPT/HCPCS: 36415; 80053; 82550; 82803; 83880; 84145; 84484; 85025; 85610; 93005; 93010; 94640; 96365; 96376; 99285

== ENCOUNTER 2016-08-31 03:36 | Outpatient (CLI) ==
[2016-08-31 04:16] VITALS: BMI 29.7
== END 2016-08-31 03:37 ==
LOC: AMBL 03:36
PROVIDERS: ATTEND Internal Medicine Geriatric Medicine
DX: R41.82 Altered mental status, unspecified (principal)

== ENCOUNTER 2016-08-31 03:47 | Emergency (ER) ==
[2016-08-31] MEDS ORDERED: SODIUM CHLORIDE 1,000 ML IV STA (04:04)
--- NOTE | 2016-08-31 04:10 | ED.PDOC ---
General ED Provider: Dr. ELLIOTT VIRAMONTES Chief Complaint: Altered Mental Status Stated Complaint: Patient is a 61 year old with a history of CVA, HTN who is a resident in the [place]. halfway staff report that he was yelling crying out for his mother . The patient however denies this. He was given 1 mg of ativan but per jail staff he was not getting better thence Ambulance was called for " changed in mental status". Blood glucose was 138 in the [facility]. Time Seen by Physician: 04:08 Mode of Arrival: Ambulance Information Source: Long-Term Exam Limitations: Altered mental status, Language barrier Primary Care Provider: NEVAEH GEE Nursing and Triage Documentation Reviewed and Agree: Yes Neurological Complaint Exam - Altered Mental Status Complaint/Exam Current Mental Status: Other (normal ) Last Known Well: yesterday Onset: Gradual Duration: 1 day Symptoms Are: Resolved Initial Severity: Mild Current Severity: None Eye Deviation Present: No Character: Reports: Confusion Aggravating: Reports: None Alleviating: Reports: None Associated Signs and Symptoms: Reports: Weakness. Denies: Fever, Illness, Nuchal rigidity, Seizure, Nausea, Vomiting, Recently depressed, Trauma Related History: Denies: Similar episode, Seizure, Suicidal Ideation, Homicidal Ideation, Prior attempt Cardiac Risk Factors: Reports: Hypertension, Elevated lipids CVA Risk Factors: Reports: Hypertension, PVD, CAD Related Surgical History: Reports: None Carotid Bruit Present: No Glascow Coma Scale (see protocol): 15 Nystagmus Present: No Gag Reflex Present: Yes Meningeal Signs Positive: No Focal Weakness: Present: RUE, LUE Focal Sensory Loss: Present: RUE Gait: Unable [id number]: Abnormal right Babinski Sign: Positive Right, Negative Left Heel to Toe Normal: No (abnormal on the right ) Signs of Injury: Present: Normal findings, Other (pressure sore on the right buttock/Sacral area. ). Absent: Contusion, Laceration, Head, Torso, Extremity Thrombolytics Considered: No Differential Diagnoses: Metabolic Disorder, Hypoglycemia, Medication reaction, Sepsis, TIA, CVA Review of Systems - Review Of Systems Constitutional: Reports: No symptoms Eyes: Reports: No symptoms Ears, Nose, Mouth, Throat: Reports: No symptoms Respiratory: Reports: No symptoms Cardiac: Reports: No symptoms GI: Reports: No symptoms : Reports: No symptoms Musculoskeletal: Reports: Back pain Skin: Reports: Other (right buttock soreness, ) Neurological: Reports: Anxiety, Weakness (residual on the right side.) Endocrine: Reports: No symptoms Hematologic/Lymphatic: Reports: No symptoms All Other Systems: Reviewed and Negative Past Medical History - Past Medical History Previously Healthy: No Endocrine: Reports: DM 2, Dyslipidemia Cardiovascular: Reports: Hypertension, A-Fib, Other (PAD) Respiratory: Reports: Other (ACUTE RESP. FAILURE) Hematological: Reports: Anemia Gastrointestinal: Reports: Liver (Hepatitis C ), Pancreatitis Genitourinary: Reports: None, CKD Neuro/Psych: Reports: CVA (x 7 with right hemiparesis ), Anxiety, Bipolar Disorder Musculoskeletal: Reports: None, Other (neuropathy ) Cancer: Reports: None - Surgical History General Surgical History: Reports: Cholecystectomy, Hernia Repair - Family History Family History: Reports: Diabetes - Social History Smoking Status: Current every day smoker, Heavy tobacco smoker Hx Substance Use: Yes (Marijuana) Alcohol Screening: None Physical Exam - Physical Exam Appearance: Well-appearing, No pain distress Eyes: HERMINIA, EOMI, Conjunctiva clear Neck: Supple Respiratory: Airway patent, Breath sounds clear, Breath sounds equal, Respirations nonlabored Cardiovascular: Pulses normal, No rub, No murmur, Bradycardia GI/: Soft, Nontender, No masses, Bowel sounds normal, No Organomegaly Musculoskeletal: Normal strength, ROM intact, No edema, No calf tenderness Skin: Warm, Dry (Stage 2 pressure sore measuring 4 cm x 3 cm on the right sacral area. Stage 1 measuring 15 cm in diameter. ) Neurological: Alert, Oriented, Focal Deficit (right hemiparesis ( old) ) Psychiatric: Affect appropriate, Mood appropriate Interpretation - Radiology Interpretation Radiology Interpretation By: Radiologist Radiology Results: No acute changes Exam Interpreted: CT Scan (head ) - EKG Interpretation Rate: Vadim Rhythm: Sinus Ectopy: None [place]: [place] ST Segment: Normal Interpretation: sinus Bradycaria ( asymtomatic ) Critical Care Note - Critical Care Note Total Time (mins): 0 Course - Course Hematology/Chemistry: 08/31/16 05:13 Orders, Labs, Meds: Lab Review 08/31/16 05:13 WBC 11.82 H RBC 3.84 L Hgb 10.6 L Hct 32.0 L MCV 83.3 MCH 27.6 MCHC 33.1 RDW Coeff of Mariano 15.9 H Plt Count 261 Immature Gran % (Auto) 0.7 Neut % (Auto) 58.0 Lymph % (Auto) 26.1 [place] % (Auto) 9.1 Eos % (Auto) 5.6 Baso % (Auto) 0.5 Immature Gran # (Auto) 0.1 Neut # 6.9 Lymph # 3.1 [place] # 1.1 Eos # 0.7 Baso # 0.1 Orders Category Date Time Status EKG-(ED ONLY) Stat CARDIO 08/31/16 04:07 Ordered ED IV/MEDIPORT/POWERPORT .ONCE EMERGENCY 08/31/16 04:04 Inactive CBC W/ AUTO DIFF Stat LAB 08/31/16 05:13 Completed COMPREHENSIVE METABOLIC PANEL Stat LAB 08/31/16 05:13 Received CREATINE KINASE Stat LAB 08/31/16 05:13 Received PT WITH INR Stat LAB 08/31/16 05:13 Received TROPONIN I Stat LAB 08/31/16 05:13 Received URINALYSIS C & S IF INDICATED Stat LAB 08/31/16 04:04 Uncollected CHEST, 1V AP ONLY Stat RADS 08/31/16 04:[address] HEAD W/O CONTRAST Stat RADS 08/31/16 04:04 Completed Vital Signs: Temp Pulse Resp BP Pulse Ox 08/31/16 03:49 98.7 F 60 20 143/66 H 96 Departure - Departure Time of Disposition: 05:45 Disposition: DISCH/TSF TO [facility] Discharge Problem: Stage II pressure ulcer of buttock Qualifiers: Laterality: right Qualifier Code: (L89.312) Pressure ulcer of right buttock, stage 2 Instructions: Pressure Ulcer (ED), How to Prevent Pressure Ulcers (ED) Condition: Good Pt referred to PMD for follow-up: Yes Additional Instructions: Cleanse with saline; Apply DuoDerm/Tegaderm dressing change every 2-3 days Use Powered air overlay for mattress with low air loss feature; nonpowered advanced pressure-reducing mattress replacement or powered air* flotation bed with or without low air loss feature For example Kellieo, dry floatation mattress system, Pegasus Renaissance mattress Turn patient every Two hours. Allergies/Adverse Reactions: Allergies Assmnsf-Fno-Aii Reductase Inhibitor Allergy (Severe, Verified 08/31/16 03:58) made me sick Iodinated Contrast- Oral and IV Dye [Iodinated Contrast Media - Oral and] Adverse Reaction (Verified 08/31/16 03:58) Home Medications: Ambulatory Orders Amlodipine Besylate [Norvasc] 10 mg PO DAILY 04/10/13 Gabapentin 600 mg PO BID 05/20/15 Lisinopril 20 mg PO BID 05/20/15 Pravastatin Sodium 40 mg PO DAILY 05/20/15 Bumetanide [Bumex] 1 mg PO QDAC 07/01/16 Clonidine HCl 0.2 mg PO Q12H 07/01/16 Collagenase Clostridium Hist [Santyl] 1 applic TP DAILY 07/01/16 Diltiazem HCl [Cardizem] 30 mg PO Q6H 07/01/16 Hydralazine HCl [Apresoline] 50 mg PO Q8H 07/01/16 Insulin Detemir [Levemir] 30 unit SUBCUT BEDTIME 07/01/16 Mupirocin [Bactroban] 1 applic TP DAILY 07/01/16 Olanzapine [Zyprexa] 5 mg PO DAILY 07/01/16 Potassium Chloride [K-Dur] 20 meq PO DAILY 07/01/16 Quetiapine Fumarate [Seroquel] 25 mg PO DAILY 07/01/16 Sotalol HCl [Betapace] 120 mg PO Q12H 07/01/16 Warfarin Sodium [Coumadin] 2 mg PO DAILY 07/23/16 Lorazepam 0.5 mg PO TID 08/02/16 Disposition Discussed With: Patient
[2016-08-31 04:16] VITALS: BP 143/66; TEMP 98.7; BMI 29.7
--- NOTE | 2016-08-31 04:45 | CT ---
EXAM: CT head without contrast. HISTORY: Mental status changes. PROCEDURE: Contiguous axial CT images of the head without contrast with coronal and sagittal reform ats. FINDINGS: Comparison made with CT of 07/23/2016. The ventricles and basal cisterns are normal in siz e and configuration. No evidence of mass or midline shift. No intracranial hemorrhage or evidence of new large vessel infarct. There is an old left parietal infarct. There are minimal chronic smal l vessel ischemic changes in the white matter. No extra-axial fluid collection. There is minimal mu cosal thickening in the paranasal sinuses. There is partial opacification of the bilateral mastoid a ir cells. Impression: No intracranial hemorrhage or evidence of new large vessel infarct. Old left parietal infarct. Chronic small vessel ischemic changes. Diffuse cerebral atrophy. Paranasal sinusitis and bilateral mastoiditis.
[2016-08-31 05:15] LABS: BASOPHILS # (AUTO) 0.1 K/uL (0-0.2); BASOPHILS % (AUTO) 0.5 % (0.0-3.0); EOSINOPHILS # (AUTO) 0.7 K/ul (0.0-0.7); EOSINOPHILS % (AUTO) 5.6 % (0.0-7.0); HEMOGLOBIN 10.6 g/dl (14.0-18.0); IMMATURE GRANULOCYTE % (AUTO) 0.7 % (0.0-5.0); LYMPHOCYTES # (AUTO) 3.1 K/uL (0.60-3.4); LYMPHOCYTES % (AUTO) 26.1 (10.0-50.0); MEAN CORPUSCULAR HEMOGLOBIN 27.6 pg (27.0-31.0); MEAN CORPUSCULAR HGB CONC 33.1 (31.8-35.4); MEAN CORPUSCULAR VOLUME 83.3 fl (80.0-94.0); MONOCYTES # (AUTO) 1.1 K/uL (0.4-2.0); MONOCYTES % (AUTO) 9.1 (0-10); NEUTROPHILS # (AUTO) 6.9 K/ul (2.0-6.9); PLATELET COUNT 261 10^3/uL (140-440); RED BLOOD COUNT 3.84 10^6/ul (4.70-6.10); WHITE BLOOD COUNT 11.82 K/ul (4.2-10.2)
[2016-08-31 05:26] LABS: PROTHROMBIN TIME 12.6 SEC (9.3-11.0)
[2016-08-31 05:42] LABS: ALBUMIN/GLOBULIN RATIO 0.71; ANION GAP 10.4; BILIRUBIN,TOTAL 0.42 mg/dL (0.00-1.20); BUN/CREATININE RATIO 13.15; CREATININE 2.28 mg/dL (0.60-1.10); POTASSIUM 4.4 mmol/L (3.5-5.1); TOTAL PROTEIN 7.2 g/dL (5.8-8.1); TROPONIN I 0.018 ng/ml (0.0000-0.4000)
--- NOTE | 2016-08-31 07:08 | DI ---
EXAM: Chest one view HISTORY: Mental status change COMPARISON: 05/10/2016 TECHNIQUE: Single view of the chest was performed FINDINGS: Mild pulmonary vascular congestion. No airspace consolidation. Granulomatous calcificat ion. Probable small right pleural effusion. No visible pneumothorax. The heart is enlarged, uncha nged in size. The mediastinal contour is normal. There are no acute abnormalities of the bones. IMPRESSION: Cardiomegaly with mild pulmonary vascular congestion. Probable small right pleural effu jaqueline. Report faxed at time of dictation.
== END 2016-08-31 07:17 ==
LOC: ED 03:47
DX: L89.312 Pressure ulcer of right buttock, stage 2 (principal); R41.82 Altered mental status, unspecified; I10 Essential (primary) hypertension; E11.65 Type 2 diabetes mellitus with hyperglycemia; R53.1 Weakness; E78.5 Hyperlipidemia, unspecified; I25.10 Atherosclerotic heart disease of native coronary artery without angina pectoris; I73.9 Peripheral vascular disease, unspecified; N18.9 Chronic kidney disease, unspecified; D63.1 Anemia in chronic kidney disease; F17.210 Nicotine dependence, cigarettes, uncomplicated; Z86.73 Personal history of transient ischemic attack (TIA), and cerebral infarction without residual deficits; Z79.899 Other long term (current) drug therapy; Z79.01 Long term (current) use of anticoagulants; Z87.19 Personal history of other diseases of the digestive system
CPT/HCPCS: 36415; 80053; 82550; 84484; 85025; 85610; 93005; 93010; 99285

== ENCOUNTER 2016-10-03 09:33 | Outpatient (CLI) | END 2016-10-03 09:34 | disposition home or self-care (01) | LOC: AMBL 09:33 | PROVIDERS: ATTEND Internal Medicine | DX: R41.82 Altered mental status, unspecified (principal); R10.9 Unspecified abdominal pain; I48.91 Unspecified atrial fibrillation; I69.351 Hemiplegia and hemiparesis following cerebral infarction affecting right dominant side ==

== ENCOUNTER 2016-10-12 14:46 | Outpatient (CLI) ==
[2016-10-18 15:15] LABS: BACTERIA IDENTIFICATION Final report (.)
[2016-10-18 15:15] LABS: BACTERIA IDENTIFICATION Final report (.)
== END 2016-10-12 14:47 | disposition home or self-care (01) ==
LOC: NONPT 14:46
PROVIDERS: ATTEND Family Medicine
DX: L98.9 Disorder of the skin and subcutaneous tissue, unspecified (principal)
CPT/HCPCS: 87070; 87077; 87186

== ENCOUNTER 2016-12-01 12:12 | Outpatient (CLI) | END 2016-12-01 12:13 | disposition home or self-care (01) | LOC: NONPT 12:12 | PROVIDERS: ATTEND Family Medicine | DX: S91.002A Unspecified open wound, left ankle, initial encounter (principal); S91.302A Unspecified open wound, left foot, initial encounter; S91.301A Unspecified open wound, right foot, initial encounter; S91.001A Unspecified open wound, right ankle, initial encounter | CPT/HCPCS: 87070; 87186 ==

== ENCOUNTER 2016-12-20 23:00 | Outpatient (CLI) | END 2016-12-20 23:01 | disposition E | LOC: AMBL 23:00 | PROVIDERS: ATTEND Emergency Medicine | DX: I46.9 Cardiac arrest, cause unspecified (principal) ==